=== PATIENT | female | born 1970 | race Caucasian/White ===

== ENCOUNTER → 2016-07-31 | Outpatient (CLI) | payer SELFPAY ==
[~2016-07-31] MED LIST: B-1100 MG PO; BENADRYL25 MG PO; BUSPAR10 MG PO; FOLIC ACID1 MG PO; KEFLEX500 MG PO; KLONOPIN0.5 MG PO; MAG-OX-400(241400 MG PO; MIRALAX17 GM PO; PHENOBARBITAL30 MG PO; POTASSIUM99 M1 PO; PRENATAL 1+1)(P1 TAB PO; PREVACID15 MG PO; PROTONIX40 MG PO; THIAMINE HCL100 MG PO; VALIUM5 MG PO; ZOLOFT100 MG PO; ZOLOFT50 MG PO
== END ==
LOC: EDSTATUS 13:34 → GAMB 18:49
DX: R46.2 Strange and inexplicable behavior (principal); E10.9 Type 1 diabetes mellitus without complications
CPT/HCPCS: A0428

== ENCOUNTER 2016-08-04 17:28 | Inpatient (IN) | payer SELFPAY ==
[~2016-08-04] VITALS: Ht 162.6 cm; Wt 67.7 kg
--- NOTE | ~2016-08-04 | DS ---
PATIENT'S NAME: SID CRUZ [facility] AGE: 46 Y [address] ROOM: [address] [place], [place] [address] LOCATION: GPCU ADMIT DATE: 08/04/2016 Discharge Summary DISCHARGE DATE: 08/07/2016 FAMILY PHYSICIAN: PHYSICIAN, NO ATTENDING PHYSICIAN: Chevy HOGUE FINAL DIAGNOSES: 1. Alcohol intoxication for detoxification. 2. History of chronic alcoholism. 3. Severe esophagitis. 4. Acute blood loss anemia, resolved. 5. History of depression. 6. BUTCHER ALL ROUND status. CONSULTATIONS: GI, Dr. Arriola. PROCEDURES: EGD by Dr. Arriola. REASON FOR ADMISSION: This is a 46-year-old female with a history of chronic alcoholism and depression. The patient presented with alcohol intoxication requiring detox. The patient was brought to the ER and was placed in BUTCHER ALL ROUND status by D. Please see Dr. Hogue's admission H and P for further details. DIAGNOSTIC STUDIES: ABG was done on admission showed a pH of 7.41, pCO2 43, pO2 62, bicarb 27.3, ammonia level less than 10. CPK 115. Troponin I less than 0.04. Serial CBCs were done and showed essentially normal white count, hemoglobin on admission was 7.7, dropped to 7.1, the next day, the patient received PRBC transfusion, hemoglobin, subsequently was 8.6, and stable at the time of discharge, platelet count was within normal range. Serial CMPs were done. Sodium was 149 on admission and was stable at 138 at the time of discharge. Kidney function tests were within normal range. Liver function tests were normal except for AST of 52 and ALT on admission of 87, total bilirubin level was normal, PT/INR normal, urine drug screen negative. Blood alcohol level 0.5 on admission. CK-MB 5.8. Acetaminophen level less than 2.0. Salicylate level less than 2.8. Beta hCG quantitative less than 1.0 and negative. Chest x-ray was done for concerns of aspiration showed no evidence of acute cardiopulmonary disease. The patient had confusion. CT head was found to be normal. HOSPITAL COURSE: This is a 46-year-old female with a history of chronic alcoholism, recent depression, and life stressors. The patient had been taking alcohol at home and presented with alcohol intoxication requiring detox. She was brought in by her family with altered mental status. CT head was done and was found to be negative. The patient just had alcohol intoxication. Urine drug screen was negative. She was following commands and PATIENT'S NAME: SID CRUZ [facility] AGE: 46 Y [address] ROOM: [address] [address] LOCATION: GPCU ADMIT DATE: 08/04/2016 Discharge Summary DISCHARGE DATE: 08/07/2016 FAMILY PHYSICIAN: PHYSICIAN, KERON ATTENDING PHYSICIAN: Chevy HOGUE was much better the next day. The patient was placed on the detox pathway and she was given a banana bag. She continued to do well and did not have any withdrawal symptoms. The patient was found to have an episode of hematemesis. GI was consulted. The patient underwent an EGD that showed severe esophagitis. She was placed on PPI b.i.d. by Gastroenterology. She needs a repeat EGD in 8 weeks and also colonoscopy to see resolution of ulcers. The patient continued to do well, she was tolerating p.o. and ambulating in the hallway. Prior to her discharge, the patient was in BUTCHER ALL ROUND status based on [facility] recommendations. [facility] was notified of her discharge of the patient and the patient was taken to residential by [facility]. I was asked to sign the paperwork saying the patient is medically stable for discharge by [facility]. The patient will need a followup and this is mentioned on the [facility] discharge instruction. The patient is okay to from a medical standpoint to go to residential, but she needs a followup as recommended in the discharge instructions below. The patient was not suicidal and was not EPC'ed. She denied any suicidal ideation during this admission. She was also not homicidal. DISCHARGE INSTRUCTIONS: She is discharged on regular diet with activity as tolerated. Follow up with GI at [facility] in 1 month time. Follow up PCP 4-5 days time. PCP to check a CBC and a BMP. The patient needs an EGD in 8 weeks with colonoscopy per GI. Alcohol cessation discussed in great detail during this admission. The patient was advised a psychiatrist follow, but she refused to visit with a psychiatrist. She then asked for a counselor. She was given information on alcohol cessation with all the telephone numbers for inpatient rehab. She will follow up with counselor outpatient. DISCHARGE MEDICATIONS: 1. Zoloft 100 mg p.o. q.a.m. 2. Protonix 40 mg p.o. b.i.d. for 3 months and GI to decide on PPI use in the future. 3. Thiamine 100 mg p.o. daily. 4. Folic acid 1 mg p.o. daily. This patient was managed by hospitalist and GI teams during this admission. PATIENT'S NAME: SID CRUZ [facility] AGE: 46 Y [address] ROOM: [place] [address] LOCATION: [facility] ADMIT DATE: 08/04/2016 Discharge Summary DISCHARGE DATE: 08/07/2016 FAMILY PHYSICIAN: , KERON ATTENDING PHYSICIAN: Chevy HOGUE ROMMEL GUO MD [place]/diamond /[id number] d: 08/08/16 0404 t: 08/11/16 1829, DISCHARGE SUMMARY
--- NOTE | ~2016-08-04 | ER ---
PATIENT'S NAME: SID CRUZ [facility] AGE: 46 Y [address] ROOM: [id number] [place], [place] [address] [facility] ADMIT DATE: 08/04/2016 ER/Outpatient Report DISCHARGE DATE: FAMILY PHYSICIAN: PHYSICIAN, NO ATTENDING PHYSICIAN: Chevy LÓPEZ Time of Admission: 1728 hours. Time of Evaluation: 1730 hours. CHIEF COMPLAINT: Possible overdose, alcohol consumption. HISTORY OF PRESENT ILLNESS: Sid is a 46-year-old female who presents per EMS with possible overdose of Benadryl along with alcohol intake. In the field, her blood sugar was 108 and initial vital signs were stable. She was at home, a friend was with her, in which he was going to drive her up to see her brother. The patient had been drinking, she was stumbling all over and not making much sense. He was very concerned about her and he did call the police at this time. The patient is currently in AA, her friend with her reports that he has only known her the last 2 or 3 weeks through this program. The patient's past medical records were reviewed, in which she does have a history of daily alcohol use. She was here last November in which she did have some uterine fibroids along with some colon diverticuli, some fatty liver. She was slightly anemic at this time and was to follow up with an [employer]. Upon presentation, she is pretty pale. There is no seizure activity. She is pretty obtunded, but she does respond to voice. The patient does become pretty emotional, cries upon asking her questions. She is disoriented to where she is at, but she know she is in [place], [place]. She is unaware of what day it is, but is able to tell myself her first and last name. PAST MEDICAL HISTORY: 1. Arthritis. 2. Alcohol abuse, daily. 3. History of anemia secondary to vaginal bleed. PAST SURGICAL HISTORY: The patient denies any past surgeries. I do not see any on record. ALLERGIES: PENICILLIN. MEDICATIONS: The patient denies any medications, they did find Benadryl in which they believe she may be had taken a couple of these. Her last visit here, she was PATIENT'S NAME: DAVID CRUZLA [facility] AGE: 46 Y [address] ROOM: [id number] [place], [place] [address] [facility] ADMIT DATE: 08/04/2016 ER/Outpatient Report DISCHARGE DATE: FAMILY PHYSICIAN: PHYSICIAN, NO ATTENDING PHYSICIAN: Chevy LÓPEZ not on any medications. SOCIAL HISTORY: She does drink alcohol daily, vodka was found in her house. She recently lost her and also had a couple other deaths in the family. FAMILY HISTORY: Not able to be obtained. REVIEW OF SYSTEMS: All systems reviewed by myself and negative with the exception of those noted in the HPI. PHYSICAL EXAMINATION: VITAL SIGNS: Current height 5 feet 4 inches, weight 70.6 kg. Temperature 98.6, pulse 119, respirations 18, blood pressure 116/70, she is 96% on room air. [place] Coma Scale is 15. GENERAL: Sid is alert, but very drowsy. She does awaken to voice, does follow commands. She is disoriented to place and time, but able to tell myself whom she is. SKIN: Overall is within normal limits. I do not see any bruising or abrasions. EYES: Pupils are reactive, but sluggish. Nonicteric. EARS: Ear canals are clear. TMs intact. NOSE: Nares are patent. No congestion is noted. MOUTH AND THROAT: Oropharynx is clear. Buccal mucosa is little dry along with her lips. NECK: Supple, no lymphadenopathy. No thyromegaly appreciated. She does not complain of any pain in her neck, can move her neck without any difficulty. CHEST/LUNGS: Lung sounds are clear throughout. HEART: Regular rhythm, little tachycardic. No murmurs noted. ABDOMEN: Normal. Bowel sounds are active. No distention is noted. No organomegaly. No masses are palpable. No CVA tenderness present. EXTREMITIES: On lower extremities, no peripheral edema is noted. She does have strength 5/5 to all extremities and moves them spontaneously. NEUROLOGIC: The patient has good equal hand grasp, good strength throughout. She does follow commands, but is just a little bit lethargic. LABORATORY DATA AND X-RAYS: Please note alcohol drug abuse overdose panel was obtained. WBC 4.2, hemoglobin is low at 7.7, MCV is 74.1, platelets are 326. Acetaminophen level, salicylate level and HCG are all negative. Alcohol is 0.500. Sodium 149, potassium 3.6, BUN 5, creatinine 0.4. Liver enzymes are mildly elevated at 52 and 87 respectively of AST and ALT. Troponin is less than 0.40. CK-MB 5.8. Ammonia level is negative. PATIENT'S NAME: SID CRUZ [facility] AGE: 46 Y [address] ROOM: [place] [address] [facility] ADMIT DATE: 08/04/2016 ER/Outpatient Report DISCHARGE DATE: FAMILY PHYSICIAN: PHYSICIAN, NO ATTENDING PHYSICIAN: Chevy LÓPEZ Please note, an EKG was performed and this was reviewed by Dr. River. Sinus tachycardia, rate is 109, normal axis. There is no ST elevation or depression. No T-wave inversion per Dr. River. CT of the head without contrast was performed which this is negative per verbal report. Official over-read is pending. ASSESSMENT: 1. Anemia, unknown etiology. 2. Alcohol intoxication, history of chronic alcohol abuse. PLAN: The patient was started on 1 L of normal saline bolus along with a banana bag. I did review all test results, lab findings with Dr. River. Dr. River did visit with the hospitalist, Mykel about admission and he did see her down in the emergency room. We were not able to get a urine from the patient as she was not able to urinate. The patient will be admitted to the hospitalist with report given by Dr. River. The patient did become more awake throughout her stay and her friend was here at her side. He did provide some history to myself and also the chief compliance officer. The patient is EPC'd due to her concern for possible endangerment to self. The patient's blood pressure initially was a little hypotensive but did correct with the fluid bolus. No other acute changes noted. Please see admission dictation for further details. SOL HONEYCUTT APRN FOR DUSTIN RIVER, DO ALONZO/modl /[id number] d: 08/05/16 0354 t: 08/15/16 1319, OUTPATIENT REPORT
--- NOTE | ~2016-08-04 | HP ---
PATIENT'S NAME: SID CRUZ [facility] AGE: 46 Y [address] ROOM: [place] [address] [facility] ADMIT DATE: 08/04/2016 History & Physical DISCHARGE DATE: FAMILY PHYSICIAN: PHYSICIAN, NO ATTENDING PHYSICIAN: Chevy LÓPEZ DATE OF SERVICE: CHIEF COMPLAINT: Alcohol intoxication. HISTORY OF PRESENT ILLNESS: The patient is a 46-year-old female with past medical history of anemia, alcohol abuse, and depression, who presents here with acute alcohol intoxication. The patient was brought in by police after her boyfriend called ambulance as the patient was noted to be intoxicated at home. Upon arrival, the patient was found to be intoxicated with elevated ethanol level of 0.5. The patient was noted to be intoxicated in the emergency department with ethanol level of 0.5. The patient was started on banana bag. The patient was placed on Emergency Protective Custody per Police Department. The patient's Benadryl medication was noted to be empty. The patient denies of taking medication to harm herself or overdose with Benadryl. The patient reports that she has been using Benadryl for her allergy and has been using 2 or 3 in the past few days. The patient reports that she is depressed, denies any suicidal ideation. According to her significant other, the patient has had some loss in the family in the past year which including her mother, son, and . The patient was also on 12-step alcohol cessation help; however, lately due to her severe depression, she has been drinking for the past few days. Of note, the patient has a history of anemia and reports that had had multiple blood transfusions in the past. She denies any EGD or colonoscopy workup done in the past. She has had a vaginal bleed in the past, but she denies that she has any vaginal bleeding in the present. The patient currently denies shortness of breath, nausea, vomiting, abdominal pain, fever, chills, weight loss, visual change, or visual hallucination. MEDICAL HISTORY: Depression and alcohol abuse. SURGICAL HISTORY: No surgical history. FAMILY HISTORY: [facility] 46 [facility] [address] ROOM: [place] [address] LOCATION: GPCU ADMIT DATE: 08/04/2016 History & Physical DISCHARGE DATE: FAMILY PHYSICIAN: PHYSICIAN, NO ATTENDING PHYSICIAN: Chevy LÓPEZ Strong family history of alcohol abuse and depression. SOCIAL HISTORY: The patient lives by herself. MEDICATION: Benadryl. REVIEW OF SYSTEMS: All systems reviewed, all negative except stated in the H and P. PHYSICAL EXAMINATION: VITAL SIGNS: The patient noted to be tachycardic, afebrile. GENERAL APPEARANCE: The patient is alert and awake, in no acute distress. HEAD: Atraumatic, normocephalic. EYES: Sclerae nonicterus. Extraocular muscle intact. NOSE: No nasal discharge. EARS: No ear discharge. ORAL: Dry oral mucosa. NECK: No JVD. CHEST: Clear to auscultation bilaterally. HEART: Tachycardic. No murmurs, rubs, or gallops. ABDOMEN: Mild epigastric tenderness on palpation. No guarding. Bowel sounds present. No rebound. SKIN: Warm to touch. EXTREMITIES: No edema. MUSCULOSKELETAL: Range of motion intact. No obvious effusion and swelling seen. 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 Motor and sensory grossly intact. LABORATORY DATA: Hemoglobin 7.7, hematocrit of 27.4, platelet of 324, and white blood cell count of 4.2. Ammonia less than 10. Sodium of 149, potassium 3.6, chloride of 112, CO2 of 24, BUN of 5, and creatinine of 0.4. Ethanol level 0.5. Tylenol and salicylate level undetectable. EKG shows normal sinus rhythm with QTc of 445 and QRS of 86. ASSESSMENT AND PLAN: The patient is a 46-year-old female with past medical history of depression, anemia, and alcohol abuse, who presents here with acute alcohol intoxication with ethanol level of 0.5 and anemia with a hemoglobin of 7.7. 1. Acute alcohol intoxication. The patient with strong history of alcohol intoxication, who presents with an acute alcohol intoxication. The patient was recently on 12 steps for alcohol cessation; however, now presenting with alcohol intoxication. The patient currently on EPC. PATIENT'S NAME: SID CRUZ [facility] AGE: 46 Y [address] ROOM: [address] [place] [address] LOCATION: GPCU ADMIT DATE: 08/04/2016 History & Physical DISCHARGE DATE: FAMILY PHYSICIAN: PHYSICIAN, NO ATTENDING PHYSICIAN: Chevy LÓPEZ Suspicious for depression and possible harming oneself. We will start the patient on CIWA protocol with thiamine supplements. We will keep the patient on telemonitor and start low-dose Lopressor which will help for her tachycardic and also with withdrawal like symptoms. 2. Anemia. Etiology most likely secondary to anemia of iron deficiency with MCV of 34.1. The patient reports that she has had blood transfusion in the past for her anemia but has not had any GI workup done. Of note, CT done on 12/12/2015 shows soft tissue attenuation in the GE junction, possible hiatal hernia. Given that and given that the patient has some epigastric tenderness with a history of alcohol abuse, we will start the patient on Protonix 40 mg IV b.i.d. We will try to acquire Hemoccults and consult GI tomorrow morning for possible GI evaluation. We will keep the patient on clear liquid diet. 3. Depression. The patient has history of depression with some social factor including recent history of family . We will consult Psychiatry tomorrow morning. 4. Possible Benadryl toxication. Currently, the patient does not exhibit any anticholinergic overdose symptoms. QTc and QRS within normal limits. We will keep the patient on telemonitor. I have personally reviewed the patient's medical record including but not limited to blood work and radiology report. Total time spent with patient is greater than 50 minutes, more than 50% of the time spent in direct patient care and discussion with her significant other. Case reviewed with the patient and nursing staff. All questions were answered to the patient's satisfaction. We will admit the patient as an inpatient due to alcohol intoxication, depression, and possible GI bleed. MD CHRISTELLE MELARA/diamond /[id number] D: 142 T: 033 HISTORY & PHYSICAL
--- NOTE | ~2016-08-04 | CON ---
PATIENT'S NAME: SID CRUZ [facility] AGE: 46 Y [address] ROOM: [address] [place], [place] [address] LOCATION: GPCU ADMIT DATE: 08/04/2016 Consultation DISCHARGE DATE: FAMILY PHYSICIAN: PHYSICIAN, NO ATTENDING PHYSICIAN: Chevy HOGUE DATE OF CONSULTATION: 08/05/2016 REFERRING PHYSICIAN: BIGG GONZALEZ MD REFERRING PROVIDER: Dr. Hogue. REASON FOR CONSULTATION: Reported hematemesis. HISTORY OF PRESENT ILLNESS: This is a 46-year-old female with a past medical history of anemia, alcohol abuse, and depression. The patient presented to the emergency room with acute alcohol intoxication after being brought in by police. Her boyfriend called the ambulance as she was noted to be severely intoxicated at home with ethanol level found in the emergency room at 0.5. The patient was placed into Emergency Protective Custody per the police department. The patient's Benadryl medication was also noted to be empty as she does deny taking any of Benadryl to harm herself or overdose, though this is unsure. The patient reports that she is depressed, but denies any suicidal ideations. We were asked to see in consultation for anemia as her hemoglobin on admission was 7.7. The patient was seen and examined. She does report having blood transfusion approximately 11 months ago secondary to anemia. At that time, it was thought it was contributed to her heavy vaginal bleeding, per her recollection. During our interview, the patient does not make eye contact. She has a very flat affect and is not open to answering questions descriptively. She denies any melenic stool. No hematemesis. She denies any GI symptoms. She does report having upper endoscopy completed approximately 6 months ago in [place], [place], that she states was "normal." At that time, she also stated she had a colonoscopy that was also normal, though we will request these reports. Again, during our interview, the patient denied any symptoms. Upon closure of our interview, the significant other, who was at bedside during our interview, followed us outside the room and reported that when he went to her home, there was noted to be a large amount of bright red blood around her emesis. He is unsure if she had previously vomited any blood as the patient continues to deny this. The patient acutely denies any chest pain, chest pressure, shortness of breath, fever, chills, night sweats, or weight loss. She does admit to drinking alcohol for the past 11 months at 750 PATIENT'S NAME: SID CRUZ [facility] AGE: 46 Y [address] ROOM: [place] [address] LOCATION: [facility] ADMIT DATE: 08/04/2016 Consultation DISCHARGE DATE: FAMILY PHYSICIAN: PHYSICIAN, NO ATTENDING PHYSICIAN: Chevy HOGUE mL minimum per day. PAST MEDICAL HISTORY: Chronic alcoholism and depression. PAST SURGICAL HISTORY: Upper endoscopy and possible colonoscopy completed approximately 6 months ago, and we will request for these records to be sent to us. SOCIAL HISTORY: The patient lives by her herself. Her approximately 11 months ago. She does have a new significant other who is at the bedside. She admits to drinking 750 mL of hard alcohol per day, her friend states there might be more. She denies any tobacco or illicit drug use. FAMILY HISTORY: There is a strong family history of alcohol abuse and depression. She denies any gastrointestinal diseases. ALLERGIES: PENICILLIN. CURRENT MEDICATIONS: Please refer to the medication administration record. REVIEW OF SYSTEMS: A 10-point review of systems was completed. All were negative except for those identified in the History of Present Illness. PHYSICAL EXAMINATION: GENERAL: A very pleasant, 46-year-old female, who is lying in bed, who appears to be in no acute distress. VITAL SIGNS: Temperature 98.9, pulse of 85, respirations of 20, blood pressure 137/70, and oxygen saturation is 96% on room air. SKIN: [employer], warm, and dry. No jaundice. HEENT: Head is normocephalic and atraumatic. Pupils are equal, round, and reactive to light. Sclerae are clear, nonicteric. Oral mucosa is pink and moist. No thyromegaly. NECK: Soft and supple. CARDIOVASCULAR: Regular. Normal S1 and S2. RESPIRATORY: Respirations even and unlabored. Lungs clear to auscultation. ABDOMEN: Soft, round, nontender, and nondistended. Bowel sounds positive x4 quadrants. MUSCULOSKELETAL: No muscle weakness or atrophy. EXTREMITIES: No clubbing, cyanosis, or edema. PATIENT'S NAME: SID CRUZ [facility] AGE: 46 Y [address] ROOM: [address] [place], [place] [address] LOCATION: GPCU ADMIT DATE: 08/04/2016 Consultation DISCHARGE DATE: FAMILY PHYSICIAN: PHYSICIAN, NO ATTENDING PHYSICIAN: Chevy HOGUE NEUROLOGICAL: Grossly nonfocal. The patient does appear to be significantly flat during our interview. She does not make eye contact, with minimal one- word answers. She does also nod when asked questions with minimal verbal response. LABORATORY AND DIAGNOSTIC DATA: Ammonia level was less than 10. White blood cell count of 4.1; hemoglobin of 7.1, down from admission at 7.7; hematocrit of 25.6; MCV of 74.6; and platelets of 320. Chemistry panel includes a glucose of 77, BUN of 5, creatinine 0.4, sodium 147, potassium 3.7, chloride of 112, and CO2 of 25. Albumin of 3.0. AST 52, ALT of 72, and alkaline phosphatase of 76. Total bilirubin 0.3. Prothrombin time 9.9 and INR 0.94. Drug screen was negative. Alcohol on admission was 0.5. She did also have a head CT on admission secondary to confusion that was a normal study. ASSESSMENT AND PLAN: Again, this is a pleasant, 46-year-old female who was recently admitted with acute alcohol intoxication. We were asked to see in consultation for the patient's anemia as her hemoglobin was found to be 7.7. In a long discussion with the patient as well as the patient's significant other at the bedside, it is stated that the patient's home was found to have a large bloody emesis, though the patient continues to deny this. We discussed in depth with the patient as well as the significant other for possible upper endoscopy. The patient was slightly reluctant to go forth, though appears to be now in agreement to go forth with an upper endoscopy. We will also request for records to be sent to us from her previous upper endoscopy and colonoscopy. She may need repeat screening colonoscopy if not done in the last 5 years with continued anemia. The risks, benefits, and alternatives were discussed with the patient as well as the patient's significant other per Dr. Bigg Gonzalez. Further recommendations to be given status post upper endoscopy. Thank you for this consult and allowing us to participate in the care of this patient. We will continue to monitor, evaluate, and treat as appropriate. REJI WHITE APRN FOR MD JOSÉ ASH/diamond /[id number] d: 08/06/16 1209 t: 08/18/16 1150, CONSULTATION REPORT
[2016-08-04 17:48] LABS: BASOPHIL % 0.5 %; HEMATOCRIT 27.4 % (33.0-46.0); IMMATURE GRANULOCYTE # 0.1 K/uL (0.0-0.3); IMMATURE GRANULOCYTE % 1.2 %; LYMPHOCYTE % 23.4 %; MCH 20.8 pg (27.0-34.0); MCHC 28.1 gm/dL (32.0-36.5); MCV 74.1 fl (83.0-98.0); MONOCYTE # 0.5 K/uL (0.0-1.0); MONOCYTE % 11.5 %; MPV 8.7 fl (9.4-12.4); NEUTROPHIL # (ANC) 2.6 K/uL (1.8-7.8); NEUTROPHIL % 62.4 %; NRBC % 0 /100WBC (0-0.00); PLATELET COUNT 326 K/uL (150-450); RDW-CV 21.2 % (11.9-14.6); WBC 4.2 K/uL (4.0-11.0)
[2016-08-04 17:50] LABS: HEMOGLOBIN 7.7 g/dL (10.0-15.0)
[2016-08-04 18:10] LABS: ALBUMIN 3.1 gm/dL (3.5-5.0); ALK PHOS 78 IU/L (33-138); ALT 87 IU/L (12-78); AST 52 IU/L (10-40); BLOOD UREA NITROGEN 5 mg/dL (6-24); CALCIUM 7.8 mg/dL (8.5-10.5); CHLORIDE 112 mMol/L (96-110); CO2 24 mMol/L (22-32); CREATININE 0.4 mg/dL (0.5-1.1); ESTIMATED GFR (MDRD EQUATION) > 60; POTASSIUM 3.6 mMol/L (3.7-5.1); TOTAL BILIRUBIN 0.2 mg/dL (0.0-1.5); TOTAL PROTEIN 6.3 g/dL (6.0-8.4)
[2016-08-04 18:12] LABS: ANION GAP 16.6 (10.0-19.0); SODIUM 149 mMol/L (135-145)
[2016-08-04 18:50] LABS: BICARBONATE 27.3 mmol/L (18.0-23.0); PCO2 43 mmHg (35-45); PO2 62 mmHg (80-90)
[2016-08-04 19:02] LABS: CPK 115 IU/L (21-215)
[2016-08-04 19:48] LABS: AMPHETAMINE NEGATIVE (NEGATIVE); BARBITURATE NEGATIVE (NEGATIVE); COCAINE NEGATIVE (NEGATIVE); OPIATES NEGATIVE (NEGATIVE)
[2016-08-04] MEDS ORDERED: BENADRYL25 MG PO (20:05)
--- NOTE | 2016-08-05 04:13 | NUR ---
Admission Note: Patient brought in by Police. 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 Patient brought to PCU at 2009 from ER. Orientated to unit, nurse, and room 6322. Blood alcohol level was 500. Patient is cooperative and talking. Placed on Psych 15-minute checks. Denies suicidal thoughts. Patient does admit to being depressed. Alcohol Withdrawal Assessment Scoring q 4 hours for 72 hours. Clear liquid diet. One banana bag and fluids given in ER. Psych, GI, care management consult tomorrow AM.
--- NOTE | 2016-08-05 04:26 | NUR ---
Significant Event: VSS on RA. HR's 90-100's. Patient appears anxious at times. IV to R) hand. Patient slept well. No complaints. CIWA protocol last night. Follow up: Psych, GI, care management consult today.
[2016-08-05 05:46] LABS: BASOPHIL % 0.7 %; EOSINOPHIL % 0.7 %; HEMATOCRIT 25.6 % (33.0-46.0); IMMATURE GRANULOCYTE # 0.1 K/uL (0.0-0.3); IMMATURE GRANULOCYTE % 1.2 %; LYMPHOCYTE # 0.8 K/uL (0.8-4.0); MCH 20.7 pg (27.0-34.0); MCHC 27.7 gm/dL (32.0-36.5); MCV 74.6 fl (83.0-98.0); MONOCYTE # 0.4 K/uL (0.0-1.0); MONOCYTE % 8.9 %; MPV 8.3 fl (9.4-12.4); NEUTROPHIL # (ANC) 2.8 K/uL (1.8-7.8); NEUTROPHIL % 68.5 %; NRBC % 0 /100WBC (0-0.00); PLATELET COUNT 320 K/uL (150-450); RBC 3.43 M/uL (3.50-5.50); RDW-CV 20.9 % (11.9-14.6); WBC 4.1 K/uL (4.0-11.0)
[2016-08-05 05:51] LABS: INR - (THERAPEUTIC) 0.94 (0.92-1.07); PROTIME 9.9 SECONDS (9.8-11.4)
[2016-08-05 05:54] LABS: HEMOGLOBIN 7.1 g/dL (10.0-15.0)
[2016-08-05 06:05] LABS: ALK PHOS 76 IU/L (33-138); ALT 72 IU/L (12-78); AST 52 IU/L (10-40); BLOOD UREA NITROGEN 5 mg/dL (6-24); CHLORIDE 112 mMol/L (96-110); CO2 25 mMol/L (22-32); CREATININE 0.4 mg/dL (0.5-1.1); ESTIMATED GFR (MDRD EQUATION) > 60; POTASSIUM 3.7 mMol/L (3.7-5.1); TOTAL PROTEIN 5.8 g/dL (6.0-8.4)
[2016-08-05 06:06] LABS: ANION GAP 13.7 (10.0-19.0); CALCIUM 7.4 mg/dL (8.5-10.5); SODIUM 147 mMol/L (135-145); TOTAL BILIRUBIN 0.3 mg/dL (0.0-1.5)
--- NOTE | 2016-08-05 11:41 | NUR ---
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 [employer] will need to notified when she is ready to dismiss. [phone] is the number to call when she is medically stable. Tried to call Nya at [facility] to see if she would meet direct admission criteria to come to them when ready to dismiss, but she is currently in an assessment per the front office coordinator, so I will try to call her back later today. CM to continue to follow and assist.
--- NOTE | 2016-08-05 16:17 | NUR ---
Significant Event: pt is having regular food today, candis.ok. EGD in am, permit signed. Psych came but pt refused. Pt has friend Zane here with her today and another friend. Pt pleasant and cooperative. Standby to bathroom. Pt drank alot of water this am. No bm. Follow up:NPO at 0000
--- NOTE | 2016-08-05 22:43 | NUR ---
KATIE here is see patient. Spoke about her last 24hrs in Hosptial. She has been cooperative with cares and agrees to have an EGD in am. KATIE released her from [facility]. We do need to contact KATIE if she leaves or when she is dismissed. She does have warrants out for her arrest.
[2016-08-06 04:15] LABS: BASOPHIL % 0.7 %; EOSINOPHIL # 0.1 K/uL (0.0-0.5); EOSINOPHIL % 1.1 %; HEMATOCRIT 29.6 % (33.0-46.0); HEMOGLOBIN 8.6 g/dL (10.0-15.0); IMMATURE GRANULOCYTE % 0.9 %; LYMPHOCYTE # 0.9 K/uL (0.8-4.0); LYMPHOCYTE % 19.6 %; MCH 21.4 pg (27.0-34.0); MCHC 29.1 gm/dL (32.0-36.5); MCV 73.6 fl (83.0-98.0); MONOCYTE # 0.5 K/uL (0.0-1.0); MONOCYTE % 10.9 %; MPV 8.7 fl (9.4-12.4); NEUTROPHIL % 66.8 %; NRBC % 0 /100WBC (0-0.00); PLATELET COUNT 306 K/uL (150-450); RBC 4.02 M/uL (3.50-5.50); RDW-CV 19.9 % (11.9-14.6); WBC 4.5 K/uL (4.0-11.0)
[2016-08-06 04:29] LABS: ANION GAP 12.8 (10.0-19.0); BLOOD UREA NITROGEN 6 mg/dL (6-24); CALCIUM 7.8 mg/dL (8.5-10.5); CHLORIDE 106 mMol/L (96-110); CO2 23 mMol/L (22-32); CREATININE 0.4 mg/dL (0.5-1.1); ESTIMATED GFR (MDRD EQUATION) > 60; POTASSIUM 3.8 mMol/L (3.7-5.1)
[2016-08-06 04:32] LABS: SODIUM 138 mMol/L (135-145)
--- NOTE | 2016-08-06 04:34 | NUR ---
Significant Event: A/O x3. Up with SBA. VSS on RA. NPO since midnight for EGD this AM. One small BM this shift. 1 unit of blood yesterday for hgb of 7.1. Hgb was 8.6 this morning. Patient cooperative with cares. CIWA protocol. 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 IV to R) hand SL. HR's 80s-100's. Follow up: EGD this morning.
--- NOTE | 2016-08-06 12:40 | NUR ---
Introduced self and CM role to Rebecca. She did have a male visitor in the room when I stopped by, but per her RN for the day Leslee, Rebecca doesn't want any visitors in the room when people come to visit with her. I did ask the gentleman to step out of the room while I talked with her, he did comply and step out of the room. Rebecca tells me that she is planning on going to stay with her brother in a small town between [place] and [place] upon dismissal from [facility]. I did let her know that [employer] was involved when she came in so we will notify them when she is ready to dismiss and from what I understand there is a warrent out for her arrest, so she might be going with them when medically cleared to leave [facility]. She voiced understanding to this. Rebecca also tells me that prior to this, she was 9 years sober and had been going to AA meetings. "I just had a bunch of people and it was hard and this is how I picked to deal with it. I have depression and I take medications for it, I know it wasn't right but it was just to much for me." I had looked at her chart before I stopped in her room and psych did try to come and see her but she turned them away. I inquired about this and she tells me,"I know what my issues are and I have medication already so I didn't want to talk with them." I asked if she followed up with any counselors, to which she tells me no. Asked if she was interested in having the names of some in the local area to which she tells me no again. She shares with me that she has no problem with obtaining her medications. I did provide/go over the financial assistance application with her and told her to fill it out and return it once she was dismissed. She voiced understanding to this. Denied any other questions, needs or concerns. Rebecca tells me that if the police don't take her into custody upon dismissal, she does have a ride of some sort to come and pick her up. CM to continue to follow and assist.
--- NOTE | 2016-08-06 18:45 | NUR ---
PATIENT HAD EGD TODAY. AWAITING CHRIS WALLACE THERAPIST TO ROUND. ORDER TO CALL SECURITY WHEN PATIENT IS GETTING DISCHARGED. PATIENT COOPERATIVE WITH CARES. NO C/O PAIN, VSS.
--- NOTE | 2016-08-07 04:14 | NUR ---
Significant Event: Patient a/ox3. VSS on RA. Up ad lorenza in room. Patient is calm and cooperative but has a very flat affect. Complains of a mild headache but does not want anything for it. Follow up: Dismissal today following RY therapist consult?
[2016-08-07] MEDS ORDERED: ZOLOFT100 MG PO (12:02)
[2016-08-07] MEDS ORDERED: PROTONIX40 MG PO (12:02)
[2016-08-07] MEDS ORDERED: THIAMINE HCL100 MG PO (12:03)
[2016-08-07] MEDS ORDERED: FOLIC ACID1 MG PO (12:04)
--- NOTE | 2016-08-07 12:33 | NUR ---
Social visit with Rebecca this morning. I let her know that I had gotten a request to talk with her again about resources. Rebecca tells me she doesn't really need them, but will take them. I did provide her with inpatient treatment options, outpatient treatment, counselors, AA meetings and the [facility] $4 medication list as well prior to her leaving. She tells me that she is familiar with [facility] so she will probably start with that resource and have them help her find something up in the [place], [place] area to go to for anything she might need since she is planning on moving up there to live with her brother upon dismissal. I let her know that we still had paperwork on the chart to notify [facility] when she was cleared to dismiss so there was a potential that she would have to go to long-term upon dismissal from our facility. She is fine with this and states she will do whatever she has to do. She denies any other questions, needs or concerns at this time. CM to continue to follow and assist. Prior to leaving the floor I did see [facility] officers up by the héctor station, and the plan is to take her to long-term as soon as orders are complete by Dr. López.
--- NOTE | 2016-08-07 14:52 | NUR ---
PATIENT DISMISSED AND TRANSFERED PER W/C BY NURSE, AND ESCORTED OUT BY [employer]. REVIEWED DISMISSAL INSTRUCTIONS, INCLUDING POST-EGD INSTRUCTIONS, PATIENT VERBALIZED UNDERSTANDING. GAVE PATIENT NEW MEDICATION INFORMATION SHEETS. PATIENT HAD NO FURTHER QUESTIONS REGARDING DISCHARGE.
== END 2016-08-07 12:35 | disposition other institution (70) | DRG 897 ==
LOC: GMED 17:28 → GPCU 19:42
PROVIDERS: Emergency Medicine; Family Medicine; ADMIT Internal Medicine
PROC: 30233N1 Transfusion of Nonautologous Red Blood Cells into Peripheral Vein, Percutaneous Approach (ICD-10-PCS; principal; 2016-08-05)
PROC: 0DJ08ZZ Inspection of Upper Intestinal Tract, Via Natural or Artificial Opening Endoscopic (ICD-10-PCS; 2016-08-06)
DX: F10.220 Alcohol dependence with intoxication, uncomplicated (principal); D62 Acute posthemorrhagic anemia; K92.2 Gastrointestinal hemorrhage, unspecified; K22.10 Ulcer of esophagus without bleeding; F32.9 Major depressive disorder, single episode, unspecified
CPT/HCPCS: C9113; G0480; J7030; J7050; P9016

== ENCOUNTER 2016-09-10 15:16 | Inpatient (IN) | payer SELFPAY ==
[~2016-09-10] VITALS: Ht 162.6 cm; Wt 65.2 kg
--- NOTE | ~2016-09-10 | DS ---
PATIENT'S NAME: DAVID RAMIREZLA Jay [facility] AGE: 46 Y [address] ROOM: [address] [address] LOCATION: [facility] ADMIT DATE: 09/10/2016 Discharge Summary DISCHARGE DATE: 09/16/2016 FAMILY PHYSICIAN: PHYSICIAN, NO ATTENDING PHYSICIAN: Mykel Reece ATTENDING PHYSICIAN: On the day of discharge, Dr. Gatica. PRIMARY CARE PROVIDER: Naresh Alonso PA-C. CONSULTING PHYSICIANS: 1. Dr. Leon, Psychiatry. 2. Dr. Younger, Nephrology. FINAL DIAGNOSES: 1. Seizure. 2. Severe hypokalemia. 3. Severe hyponatremia. 4. Refeeding syndrome. 5. Alcohol abuse/dependence. 6. Esophagitis. 7. Depression and anxiety. DISCHARGE MEDICATIONS: 1. vitamin 1 tablet p.o. daily. 2. Prevacid capsule 50 mg p.o. daily. 3. Cephalexin 500 mg p.o. t.i.d. through 09/21/2016. 4. Thiamine 100 mg p.o. twice daily. 5. MiraLAX 17 g p.o. daily p.r.n. constipation. 6. Zoloft 50 mg p.o. daily times week and then increase to 100 mg p.o. daily. 7. BuSpar 10 mg p.o. b.i.d. Discontinued medication was clonazepam 0.5 mg. REASON FOR ADMISSION: Please refer to Dr. Hogue's admitting H and P. This is a 46-year-old female, who was admitted for seizure. She had a fall and seizure at a gas station and was brought to the ER following this. Please refer to also the ER note outlining her presentation. The patient was admitted for further management. LABORATORY AND DIAGNOSTIC DATA: Please refer to the admitting H and P for the laboratory data found in the ER. Of noted, sodium was 120, potassium 1.8. The CT of the head was obtained and it was negative. EKG showed sinus tach. No QRC elongation and no U waves were seen. The patient was monitored closely and sodium levels slowly increased with cautious monitoring over the next [facility]GE: 46 Y [address] ROOM: [address] [place], [place] [address] LOCATION: TU ADMIT DATE: 09/10/2016 Discharge Summary DISCHARGE DATE: 09/16/2016 FAMILY PHYSICIAN: PHYSICIAN, NO ATTENDING PHYSICIAN: Mykel Reece handful of days to the point of day of discharge where it was found to be 137. Potassium was also monitored and replaced and trended upward from 1.8 to normal level of 4.1 by September 11, 2016. This was continued to be monitored and on the day of discharge was 4.2. HOSPITAL COURSE: The patient was admitted to the ICU unit and was given Valium 5 mg twice daily along with Ativan for seizure control. She was on the alcohol and drug detox pathway. Iron studies were obtained. Iron was low at 24, TIBC was 341, and percent saturation was 7%. It should note that hemoglobin upon admission was 10.3, at its bobbi was 8.4, likely a dilutional on the day of discharge was 9.4. The patient was placed on fluid restriction and given D5W and DDAVP with the help of Nephrology's management. This was escalated appropriately and monitored. The patient ultimately was taken off her end-tidal CO2 monitor and was able to be up in the hallways with assistance. On 09/12/2016, she was placed on Lovenox for DVT prophylaxis. The patient had no further seizure activity throughout her hospitalization, and we suspect this is secondary to her electrolyte imbalance initially. On 09/14/2016, the patient did have some erythema about an antecubital IV site, which infiltrated. She was started on Keflex for 7 total days for this. Care Management was working with the patient as far as discharge recommendations. Ultimately, we did have Dr. Leon from Psychiatry visit with the patient on 09/15/2016, gave recommendations as far as management of her depression and anxiety. Zoloft and BuSpar were recommended and clonazepam was discontinued. Ultimately, on 09/16/2016, the patient was stable, feeling well. I had made arrangements for family to allow her to stay with them upon discharge, and ultimately, the patient was discharged on this date. It was recommended that she follow up with her primary care physician in 3 to 5 days, and arrangements were made for her to see Dr. Leon on 10/27/2016 at 2:45 p.m. for followup on her psychiatric medications and counseling. The patient voiced understanding of these arrangements. We reviewed medications recommended for her including Zoloft and BuSpar and reviewed that we were stopping the clonazepam again. The patient voiced understanding. Voiced her concern about her continuing to get counseling and psychiatric help in terms of her anxiety, depression, and alcohol abuse. The patient states she has earnest intentions of continuing with [facility] outpatient and seemed earnest in following up with our psychiatric colleagues concerning her medications and counseling. The patient is discharged home on 09/16/2016 with a diet as tolerated along with activity level. Discharge of this patient took greater than 35 minutes and included coordinating of care with our psychiatric colleagues and contacting her PCP and reviewing medications and followup recommendations with the patient. PATIENT'S NAME: SID RAMIREZ [facility] AGE: 46 Y [address] ROOM: [place] [address] LOCATION: [facility] ADMIT DATE: 09/10/2016 Discharge Summary DISCHARGE DATE: 09/16/2016 FAMILY PHYSICIAN: PHYSICIAN, KERON ATTENDING PHYSICIAN: Mykel Reece KARMA ORELLANA PA-C FOR MD CHARLEE RICO/diamond /[id number] d: 09/17/16 0201 t: 09/22/16 1032, DISCHARGE SUMMARY
--- NOTE | ~2016-09-10 | ER ---
PATIENT'S NAME: SID RAMIREZ [facility] AGE: 46 Y [address] ROOM: [address] [address] LOCATION: [facility] ADMIT DATE: 09/10/2016 ER/Outpatient Report DISCHARGE DATE: FAMILY PHYSICIAN: PHYSICIAN, UNKNOWN ATTENDING PHYSICIAN: Chevy HOGUE Time of arrival: 1516 hours. Time of evaluation: 1516 hours. CHIEF COMPLAINT: Head injury and seizure. HISTORY OF PRESENT ILLNESS: The patient is a 46-year-old female, presents to the emergency department today with a chief complaint of head injury and seizure. Per EMS report, the patient was at a gas station when she was found by the gas station staff to have fallen and hit her head. She did have seizure-like activity that was reported. The patient has been agitated en route. She does report that she has been drinking alcohol and she has lost her . She does have multiple different stories. She does report that her is looking for a job and that was why she was in a town different from her hometown. She then later does report that she lost her . She denies any chest pain. No shortness of breath. She does have a mild headache at the right side of her head. She does report that she has had 4 beers since about 10 a.m. Denies any vision changes. Denies any history of seizure. Pain is currently 0/10 in severity. PAST MEDICAL HISTORY: Anemia, vaginal bleeding, depression, alcohol abuse, arthritis. PAST SURGICAL HISTORY: None reported. SOCIAL HISTORY: The patient denies smoking. She reports daily alcohol use. Denies any illicit drug use. ALLERGIES: TO PENICILLIN. MEDICATIONS: Please see list. PRIMARY CARE DOCTOR: None. PATIENT'S NAME: SID RAMIREZ [facility] AGE: 46 Y [address] ROOM: [address] [address] LOCATION: [facility] ADMIT DATE: 09/10/2016 ER/Outpatient Report DISCHARGE DATE: FAMILY PHYSICIAN: PHYSICIAN, UNKNOWN ATTENDING PHYSICIAN: Chevy HOGUE REVIEW OF SYSTEMS: All systems are reviewed by myself and are negative with the exception of those discussed in the HPI and past medical history. PHYSICAL EXAMINATION: VITAL SIGNS: Weight 64.5 kg, blood pressure 124/77, pulse 105, respiratory rate 20, temperature 97.2, oxygen saturation is 98% on room air. GENERAL: The patient is a 46-year-old female who is awake, but confused. She is oriented to person, not place, not time, not to situation. HEENT: Head, normocephalic. Does have evidence of trauma to the posterior aspect of her head with a hematoma noted. There is also a 3.0 cm laceration. Pupils are equal, round, and reactive to light and accommodation. Extraocular motions are intact. Nares are patent bilaterally. TMs, no evidence of hemotympanum, no Porter sign. No raccoon eyes. The patient does have some swelling around her gums as well as some injury to the lateral aspect of her tongue. NECK: Supple. No nuchal rigidity. No step-offs or deformities. CARDIOVASCULAR: Regular rate and rhythm. No murmurs, rubs, or gallops. LUNGS: Clear to auscultation bilaterally. No wheezes, rales, or rhonchi. ABDOMEN: Soft, nontender, nondistended. No rebound, rigidity, or guarding. MUSCULOSKELETAL: The patient moves all 4 extremities. NEUROLOGICAL: GCS 15. Alert, confused. Slurred speech. She does have equal field underwriter strength bilaterally. Difficulties with [id number]. Downward going toes. No clonus. SKIN: The patient does have a 3.0 cm laceration to the posterior aspect of the scalp and there is surrounding hematoma. LABORATORY DATA AND X-RAYS: Labs and x-rays are obtained. CBC: WBC 15.8, hemoglobin 10.3, hematocrit of 32.6, platelets are normal. Coags are normal. CT scan of the head and neck are obtained. I discussed the results with the radiologist. The head is negative. The neck does show degenerative changes. An initial CMP does reveal a sodium of 116, potassium less than 2. This is rechecked and does reveal a sodium of 120, potassium less than 2.0, chloride 62, CO2 45, glucose 97. BUN and creatinine are normal. Liver function tests are normal. Alcohol is less than 0.01. HCG is less than 1. Accu-Chek is 134. Coags are unremarkable. IMPRESSION: 1. 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 2. Severe hypokalemia. 3. Seizure due to #1. 4. History of alcohol abuse. PATIENT'S NAME: SID RAMIREZ [facility] AGE: 46 Y [address] ROOM: [id number] [place], [place] [address] LOCATION: [facility] ADMIT DATE: 09/10/2016 ER/Outpatient Report DISCHARGE DATE: FAMILY PHYSICIAN: PHYSICIAN, UNKNOWN ATTENDING PHYSICIAN: Chevy HOGUE 5. Acute on chronic anemia with history vaginal bleeding. 6. History of severe esophagitis. 7. Critical care time 31 minutes. 8. Initial visit. EMERGENCY DEPARTMENT COURSE: The patient was brought back to the examination room. Seen and evaluated by myself. IV is established. Laboratory analysis and imaging are obtained as described above. The patient is given a liter of normal saline. The patient is also given 4 mg of Zofran IV. The patient's laboratory testing revealed, initially showed sodium of 116, potassium less than 2.0. This is rechecked. The patient is re-evaluated. She is given normal saline of approximately 500 mL and she is more responsive. Seems to be answering questions and more attentive, however, she is still somewhat confused. The rest of the laboratory analysis is reviewed. CT imaging is reviewed. I have discussed results with the patient. She actually has significantly improved mentation. She is able to ambulate to the bathroom. I have contacted Dr. Younger with Nephrology. He does report he will see and evaluate the patient in the emergency department. Potassium and sodium are replaced. I have discussed the case with Dr. Hogue who is on- call for the hospitalist service. He does agree to accept the patient for further evaluation, treatment, and management. The patient did require a critical care time of 31 minutes. This is cumulative time which did include discussion with the patient, ordering tests, reviewing tests, close monitoring in a patient with altered mental status, discussion with the radiologist as well as close monitoring in a patient with severe electrolyte abnormalities. DISPOSITION: The patient is admitted under the care of Dr. Hogue in stable condition. DO PATRICK CAMPO/diamond /[id number] d: 09/11/16 1302 t: 09/15/16 0752, OUTPATIENT REPORT
--- NOTE | ~2016-09-10 | CON ---
PATIENT'S NAME: SID RAMIREZ [facility] AGE: 46 Y [address] ROOM: [address] [address] LOCATION: [facility] ADMIT DATE: 09/10/2016 Consultation DISCHARGE DATE: FAMILY PHYSICIAN: PHYSICIAN, UNKNOWN ATTENDING PHYSICIAN: Chevy HOGUE DATE OF CONSULTATION: 09/10/2016 REFERRING PHYSICIAN: ROXIE KELLEY REFERRING PHYSICIAN: Dr. Hogue. REASON FOR CONSULTATION: Hyponatremia and hypokalemia. HISTORY OF PRESENT ILLNESS: This is a 46-year-old female with history of depression, alcoholic gastritis, and history of alcohol abuse with recent admission with acute alcohol intoxication. Presented in the clinic with seizure, found to have a sodium of 116. Nephrology consultation has been called for above-mentioned reason. Apparently the patient had a fall today and seizure at a gas station. The patient was noted to fall backwards and hit her head and noticed to have seizure activity lasting for about 3 minutes. EMS was called and the patient was brought to the hospital. Initial lab workup here at our hospital showed sodium of 120 and potassium of 1.8. She received about a liter of normal saline. Repeat sodium after that was 121. The patient had a prolonged history of hypokalemia and was supposed to take potassium; however, probably was not compliant with medications. She has a long history of alcoholism since her demise about a year ago. She is probably homeless and living with her boyfriend and she sometimes is not making sense, although all the records suggested that she is from [place] but she says that she lives in [place]. She sometimes says that her about 3 months ago when actually he about a year ago. However appears to be alert and communicative. As per the patient, since last weekend she was drinking vodka, bottles after bottle with very poor oral intake. She was apparently in the hotel and was going to sleep. She since Thursday onwards, she had only two chicken sandwiches but she could not remember when. She denied any fever, chills, or rigor. Currently has no symptoms, resting comfortably, mildly tachycardic. Although she had seizure activity in the gas station but she denied any urinary incontinence or bowel incontinence. She does not have any fever, chills, cough, headache, or vision changes. As mentioned above, she had recent admission to our hospital with alcohol intoxication and acute blood-loss anemia, possibly from alcoholic gastritis. Had an EGD which showed severe esophagitis and was discharged on PPI but as mentioned above she is noncompliant with all her medications. REVIEW OF SYSTEMS: GENERAL: No fever. No chills or rigor. HEENT: No sore throat. No sinus congestion. CVS: No chest pain. No exertional shortness of breath. No leg swelling. RESPIRATORY: No shortness of breath. No cough. No wheezing. GENITOURINARY: No pain with urination. No increased frequency. No nocturia. GASTROINTESTINAL: No abdominal pain. No abdominal distention. No nausea or vomiting. NEUROLOGIC: No weakness but history of seizures as mentioned in HPI. SKIN: No rash. No itching. ALLERGIES: No seasonal allergy. No hayfever. ENDOCRINE: No heat intolerance. No cold intolerance. PSYCHIATRIC: No sadness. No crying spells. No history of panic attack.PATIENT'S NAME: SID RAMIREZ [facility] AGE: 46 Y [address] ROOM: [place] [address] LOCATION: [facility] ADMIT DATE: 09/10/2016 Consultation DISCHARGE DATE: FAMILY PHYSICIAN: PHYSICIAN, UNKNOWN ATTENDING PHYSICIAN: Chevy HOGUE PAST MEDICAL HISTORY: 1. Depression. 2. Alcohol abuse. 3. Alcoholic gastritis/esophagitis. 4. Recent admission at [facility] with acute alcohol intoxication. PAST SURGICAL HISTORY: No significant past surgical history. FAMILY HISTORY: Father had history of alcohol abuse, no history of IV drug abuse, occasional smoking. SOCIAL HISTORY: Apparently stays in hotel, was recently taken to detention by [facility], denied smoking, has been out of work for the past 6 months. Currently on social security. MEDICATIONS: Although patient was supposed to be on PPI and some other medication but not compliant with any medications. PHYSICAL EXAMINATION: VITAL SIGNS: Blood pressure 100 to 110 over 50 to 60, respiratory rate 18 to 22, heart rate of 103, saturating 93% to 95% on room air. Currently afebrile. GENERAL: Not in apparent distress. HEAD: Moist mucous membranes. Bilateral PERRLA. Aurelia on the head and the back side with laceration. Dry and intact. No active bleeding. NECK: No JVD, thyromegaly or lymphadenopathy. CVS: S1 and S2 normal, regular rate and rhythm. No murmur, rub, gallop. CHEST: Bilateral air entry equal. No wheeze or rales. ABDOMEN: Soft, nontender, nondistended. Bowel sounds present. EXTREMITIES: No cyanosis, clubbing, jaundice. No dependent edema. MUSCULOSKELETAL: No limitation of range of motion. SKIN: No pallor, cyanosis, icterus. REQUIREMENTS ENGINEER: Alert but occasionally not making sense. No gross focal neurological deficit and moving all 4 extremities. LABORATORY DATA: PH 7.6, pCO2 54, bicarb 53, PO2 60. CBC: WBC 15.8, hemoglobin 8.3, platelet 217. Chemistry: Sodium 121, potassium 1.9, chloride 65, bicarbonate 42, BUN 12, creatinine 0.6, glucose 95, calcium 8.9. Albumin 3.6, phosphorus 1.2, magnesium 2.8. INR 1.04. UA, electrolytes are pending. Alcohol level not detectable. Urine tox screens are negative. Urine osmolality 130. PATIENT'S NAME: SID RAMIREZ [facility] AGE: 46 Y [address] ROOM: [place] [address] LOCATION: [facility] ADMIT DATE: 09/10/2016 Consultation DISCHARGE DATE: FAMILY PHYSICIAN: PHYSICIAN, UNKNOWN ATTENDING PHYSICIAN: Chevy HOGUE ASSESSMENT/PLAN: 1. Hyponatremia, possibly hypotonic and euvolemic; serum osmolality although still pending. With very low urine osmolality with significant hyponatremia, we do suspect low osmolar intake with potomania. The patient is giving history of heavy alcohol intake for the last few days without any oral intake. Serum sodium has improved from 116 to 121 on most recent lab check and currently has no neurological symptoms or focal neurological deficit, although appears to be mildly confused but I do not know the baseline status. At this point, I do not see any reason to give 3% sodium chloride. However, I will closely monitor the serum sodium at least q.4. Generally speaking with potomania, if we restrict oral fluid intake, the serum sodium improves too fast and we may need to use some D5 and/or desmopressin to slow the rate of rise of serum sodium. We will closely monitor and I have instructed the nurse to call me with the results of serum sodium every 4 hourly. We will also check urinalysis and urine electrolytes including sodium, potassium, creatinine, osmolality, serum osmolality, and we will continue to check those labs every 4 hourly along with serum sodium. 2. Hypokalemia. Patient's potassium level was initially undetectable on routine serum chemistry; later found to be 1.8 to 1.9 range. We will give 40 mEq of potassium chloride IV now and we will repeat potassium chloride 40 mEq after 2 hours of IV. We will also start oral supplementation along with 40 mEq of oral potassium every 2 hourly until potassium level comes back more than 3.5. We will also check magnesium level. The patient had a history of hypokalemia in the past. Chronic alcoholic patients are occasionally magnesium deficient and that may lead to chronic hypokalemia in these patients. We do not see any reason to suspect Gettleman syndrome in this case. 3. Alcohol abuse. The patient's alcohol level currently is undetectable; however, had a history of prolonged alcohol abuse. There is a chance of delirium tremens. I will defer that to the primary team but the patient needs close monitoring and possibly ICU evaluation. Thank you for allowing me to participate in this patient's care. I will closely monitor the patient's progress along with you. ROXIE KELLEY MD /modl /[id number] d: 09/11/16 1641 t: 09/13/16 1312, CONSULTATION REPORT
--- NOTE | ~2016-09-10 | HP ---
PATIENT'S NAME: DAVID RAMIREZLA Jay [facility] AGE: 46 Y [address] ROOM: [address] [address] LOCATION: [facility] ADMIT DATE: 09/10/2016 History & Physical DISCHARGE DATE: FAMILY PHYSICIAN: PHYSICIAN, UNKNOWN ATTENDING PHYSICIAN: Chevy LÓPEZ DATE OF SERVICE: CHIEF COMPLAINT: Hyponatremia. HISTORY OF PRESENT ILLNESS: The patient is a 46-year-old female with past medical history of alcohol abuse, and depression, who presents here with seizure. The patient had a fall today and seizure at gas station. The patient was noted to fall backwards and hit her head and was noticed to have seizure activity lasting 3 minutes. EMS was called and the patient was brought in to our hospital. The patient's lab workup shows sodium of 120 and potassium of 1.8. The patient reports that she has a history of hypokalemia and supposed to take potassium; however, is not taking her medication. The patient reports that lately she has been living in a hotel and has been depressed and been drinking vodka with poor oral intake. She reports that she drinks until she goes to sleep. She reports that she has a few drinks today also. She does not remember her seizure activity and claims that she fell backwards and just hit her head. She denies fever, chills, abdominal pain, productive cough, headache, vision change, tongue bite, or urinary incontinence. The patient denies history of having seizure. The patient was admitted to our hospital on August 04, 2016, for alcohol intoxication and acute blood loss anemia. She was brought in by her family member for possible detox on her last admission and also complained hematemesis then and had EGD that showed severe esophagitis, and was discharged home with Protonix. However, she reports that she did not take her Protonix after discharge. Upon discharge, [place] [employer] was notified of her discharge and the patient [place] [facility]. The patient reports that due to her and son loss, she has been depressed and has been drinking for the past few years The patient currently denies suicidal attempt and ingestion of her other medication to harm himself. MEDICAL HISTORY: Severe esophagitis, alcohol abuse, and depression. SURGICAL HISTORY: No surgical history. [facility] AGE: 46 Y [address] ROOM: [address] [place] [id number] LOCATION: [facility] ADMIT DATE: 09/10/2016 History & Physical DISCHARGE DATE: FAMILY PHYSICIAN: PHYSICIAN, UNKNOWN ATTENDING PHYSICIAN: Chevy LÓPEZ FAMILY HISTORY: Father has history of alcohol abuse. SOCIAL HISTORY: The patient stays in hotel, was recently taken [place] [facility]. Denies smoking and has been out of work for the past six months. She is currently on social security for income. MEDICATIONS: Currently, the patient is not taking any medication. REVIEW OF SYSTEMS: All systems have been reviewed and are negative except for what is mentioned in HPI. PHYSICAL EXAMINATION: VITAL SIGNS: Afebrile, heart rate of 103, blood pressure 102/58, and O2 saturation of 93 on room air. GENERAL APPEARANCE: The patient is alert and awake, in no acute distress. HEAD: The patient has a laceration of her back side of her head. Aurelia are present. Aurelia clear, dry and intact. No active bleeding. EYES: Extraocular muscle intact. No discharge. NOSE: No nasal discharge. ORAL MUCOSA: The patient has mild ulceration and bleeding around her gums. CHEST: Clear to auscultation bilaterally. HEART: Regular rate and rhythm. No murmurs, rubs, or gallops. ABDOMEN: Soft, nontender, and nondistended. Bowel sounds present. SKIN: Warm to touch. CASINO FLOOR RUNNER: The patient is alert and oriented x3. Motor and sensory grossly intact. MUSCULOSKELETAL: Range of motion intact. No obvious joint effusion. LABORATORY DATA: ABG; pH of 7.6, pCO2 54, and bicarb of 53, pO2 of 60. White blood cell count of 15.8, hemoglobin 10.3, and hematocrit of 32.6, and MCV of 71.1. Sodium of 120, potassium of 1.8, chloride of 62, CO2 of 45, alkaline phosphatase of 60, AST of 39, ALT of 32. Alcohol level undetectable. INR of 1. Urine sodium of 8, potassium of 11, creatinine of 24, also serum osmolality of 260, serum magnesium 1.9, uric acid of 14.9, urine osmolality of 130. CT head unremarkable. EKG sinus tachycardia with QTc of 425, no QRC elongation, no U-waves seen. PATIENT'S NAME: SID RAMIREZ [facility] AGE: 46 Y [address] ROOM: [address] [address] LOCATION: [facility] ADMIT DATE: 09/10/2016 History & Physical DISCHARGE DATE: FAMILY PHYSICIAN: PHYSICIAN, UNKNOWN ATTENDING PHYSICIAN: Chevy LÓPEZ ASSESSMENT AND PLAN: 1. Hyponatremia. The patient is a 46-year-old, white female, presenting with severe hyponatremia with possible seizure secondary to hyponatremia. The patient currently alert and oriented x3. Urine osmolality shows 130, serum osmolality currently pending. Urine sodium and potassium is low. Etiology most likely secondary to beer potomania secondary to alcohol intake and low salt intake. The patient received 1 L of IV fluid in the emergency department. We will start patient on high-protein diet. We will hold IV fluids. We will check renal function panel q.4 hours. Nephrology is consulted. Dr. Younger have seen the patient to follow patient closely with serial renal function panel. To limit fluid intake, to less than 1 L in 24 hours. 2. Severe hypokalemia, etiology most likely secondary to underlying history of hypoxemia and gastric loss, most like secondary to possible association with nausea and vomiting. We will follow the patient closely, QTc is 425 on the EKG. We will place patch as the patient's magnesium level is 1.9. We are going to give potassium 40 mEq in 2 hours IV and to repeat another 40 mEq IV in 2 hours. To also give 40 mEq of potassium oral every 2 hours until potassium is 3.5. To check renal function panel every 4 hours, and to have closer look up. 3. Metabolic alkalosis, most likely secondary to low chloride level and severe hypokalemia. We will treat hypokalemia and also start the patient on high-protein food. The patient is currently taking potassium chloride p.o. We will follow the patient closely. 4. Seizure, most likely secondary to hyponatremia. We will treat underlying etiology depending on level of sodium and seizure, we will treat with 3% if needed. We will put on seizure precaution and Ativan p.r.n. 5. History of alcohol abuse. The patient currently going to be admitted in ICU. Denies history of withdrawal. We will follow the patient closely. We will start the patient on CIWA protocol. We will avoid using thiamine for now as thiamine has free fluid and will change the balance of sodium. We will start oral thiamine for now. We will consult social service director for alcohol abuse. 6. Severe history of esophagitis. We will continue Protonix 40 mg p.o. b.i.d. 7. Leukocytosis. No signs of infection. We will acquire a procal and get a chest x-ray for possible aspiration pneumonia with seizure. However, we will follow clinically. We will avoid antibiotics use for now. 8. The patient currently does not have a place to stay. We will consult social service director. 9. Protein-calorie malnutrition. We will start the patient on high protein diet. I have personally reviewed the patient's medical record including, but not limited to blood work and radiology report. Total time spent with patient is PATIENT'S NAME: SID RAMIREZ [facility] AGE: 46 Y [address] ROOM: [place] [address] LOCATION: [facility] ADMIT DATE: 09/10/2016 History & Physical DISCHARGE DATE: FAMILY PHYSICIAN: PHYSICIAN, UNKNOWN ATTENDING PHYSICIAN: Chevy LÓPEZ greater than 60 minutes, more than 50% of the time spent in direct patient care and patient consultation. Indication was reviewed with the patient, nursing staff, and Dr. Younger, our Nephrology. We will admit the patient to ICU for further care. Greater than 30 minutes of critical care was spent on patient care, also at the bedside. MD CHRISTELLE MELARA/modl /[id number] D: 225 T: 916 HISTORY & PHYSICAL
--- NOTE | ~2016-09-10 | CON ---
PATIENT'S NAME: DAVID RAMIREZLA Jay [facility] AGE: 46 Y [address] ROOM: [place] [address] LOCATION: T ADMIT DATE: 09/10/2016 Consultation DISCHARGE DATE: 09/16/2016 FAMILY PHYSICIAN: PHYSICIAN, NO ATTENDING PHYSICIAN: Chevy LÓPEZ DATE OF CONSULTATION: 09/15/2016 REFERRING PHYSICIAN: ROXIE KELLEY REASON FOR CONSULT: Depressed mood. HISTORY OF PRESENT ILLNESS: The patient is a 46-year-old female with a history of alcohol use disorder and depressive disorder, who presented to the hospital with alcohol intoxication and seizures. The patient is seen today in her room. She reports that she has been sober for 11 years and relapsed more than a year ago following the of her son. Her drinking escalated with the subsequent passing away of her , brother, and mother, all in a space of 6 months. She endorses tolerance, cravings, withdrawals, and continued to drink despite hospitalization for alcoholic gastritis. This is her second hospitalization for alcohol intoxication in less than 2 months. The patient endorses depressed mood, low self-esteem, and feelings of guilt. She, however, denies feelings of hopelessness or worthlessness, and states that she is not suicidal. She reports normal sleep, energy, and appetite, and has no manic or psychotic symptoms. Her anxiety is increased, and she has been worrying a lot lately about her current situation and her future. She denies panic attacks, phobias, obsessions, or compulsions. PAST PSYCHIATRIC HISTORY: The patient reports a history of alcohol abuse and recurrent depression. She denies prior psychiatric hospitalization and also denies a history of self- harm or prior suicide attempts. She has been on several medications over the years, but is currently on Zoloft and clonazepam. She does not think her current medications help anymore. PAST MEDICAL HISTORY: Esophagitis, alcoholic gastritis and anemia. MEDICATIONS: See medication list. ALLERGIES: PENICILLIN. PATIENT'S NAME: SID RAMIREZ [facility] AGE: 46 Y [address] ROOM: [place] [address] LOCATION: [facility] ADMIT DATE: 09/10/2016 Consultation DISCHARGE DATE: 09/16/2016 FAMILY PHYSICIAN: PHYSICIAN, NO ATTENDING PHYSICIAN: Chevy LÓPEZ PAST FAMILY AND SOCIAL HISTORY: The patient is and has 4 children, 3 alive. She denies a history of childhood abuse or trauma. 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. The patient denies current legal problems and was previously incarcerated on alcohol-related charges. She denies tobacco or illicit drug use. She drinks a fifth of whiskey nearly every day. She is unaware of any history of mental illness in the family. REVIEW OF SYSTEMS: Ten systems reviewed and all others negative except as noted in the history. MENTAL STATUS EXAMINATION: The patient is pleasant and cooperative with the interview. She makes good eye contact. She has a normal psychomotor activity. Her speech is normal in rate and volume. She describes her mood as depressed. Her affect is labile and tearful, but she smiles easily. Her thoughts are logical and goal directed. She denies suicidal, homicidal, or violent ideations. She denies hallucinations and has no delusions. She is alert and oriented to time, person, and place. Her concentration and memory are normal. Her language is intact. Her intelligence is average. Her insight and judgment are fair. DIAGNOSES: 1. Alcohol use disorder, severe. 2. Major depressive disorder, unspecified. 3. Uncomplicated bereavement. PLAN: The patient has not been on Zoloft since admission; recommend restarting this medication, discontinue clonazepam and start the patient on BuSpar 10 mg twice daily. [facility] outpatient psych followup for medication management and substance abuse counseling. Thank you for your consult. MD MADIHA LEE/diamond /[id number] d: 09/16/16 0850 t: 09/16/16 1612, CONSULTATION REPORT
[~2016-09-10 15:16] MED LIST changes: -B-1100 MG PO; -BUSPAR10 MG PO; -KEFLEX500 MG PO; -KLONOPIN0.5 MG PO; -MAG-OX-400(241400 MG PO; -MIRALAX17 GM PO; -PHENOBARBITAL30 MG PO; -POTASSIUM99 M1 PO; -PRENATAL 1+1)(P1 TAB PO; -PREVACID15 MG PO; -VALIUM5 MG PO; -ZOLOFT50 MG PO
[2016-09-10 15:49] LABS: HEMATOCRIT 32.6 % (33.0-46.0); HEMOGLOBIN 10.3 g/dL (10.0-15.0); MCH 22.2 pg (27.0-34.0); MCHC 31.6 gm/dL (32.0-36.5); MCV 70.1 fl (83.0-98.0); PLATELET COUNT 256 K/uL (150-450); RBC 4.65 M/uL (3.50-5.50); RDW-CV 20.3 % (11.9-14.6); WBC 15.8 K/uL (4.0-11.0)
[2016-09-10 16:00] LABS: INR - (THERAPEUTIC) 1.04 (0.92-1.07); PROTIME 10.9 SECONDS (9.8-11.4); PTT 25 SECONDS (25-32)
[2016-09-10 16:21] LABS: ABSOLUTE NEUTROPHIL CT (ANC) 14.7 K/uL (1.8-7.8); BANDED NEUTROPHIL # 1.4 K/uL (0.0-0.1); BANDED NEUTROPHILS % 9 %; LYMPHOCYTE # 0.2 K/uL (0.8-4.0); LYMPHOCYTE % 1 %; MONOCYTE # 0.9 K/uL (0.0-1.0); SEGMENTED NEUTROPHIL # 13.3 K/uL (1.8-7.8); SEGMENTED NEUTROPHIL % 84 %
[2016-09-10 17:57] LABS: CHLORIDE 62 mMol/L (96-110); POTASSIUM < 2.0 mEq/L (3.7-5.1); SODIUM 120 mEq/L (135-145)
[2016-09-10 17:58] LABS: ALBUMIN 4.1 gm/dL (3.5-5.0); ALK PHOS 68 IU/L (33-138); BLOOD UREA NITROGEN 14 mg/dL (6-24); CO2 45 mMol/L (22-32); CREATININE 0.6 mg/dL (0.5-1.1); ESTIMATED GFR (MDRD EQUATION) > 60; TOTAL BILIRUBIN 1.2 mg/dL (0.0-1.5); TOTAL PROTEIN 7.5 g/dL (6.0-8.4)
[2016-09-10 17:59] LABS: ALT 32 IU/L (12-78); AST 39 IU/L (10-40)
[2016-09-10 19:18] LABS: PCO2 54 mmHg (35-45); PO2 60 mmHg (80-90)
[2016-09-10 19:51] LABS: MAGNESIUM 1.9 mg/dL (1.8-2.6)
[2016-09-10 20:00] LABS: ALBUMIN 3.9 gm/dL (3.5-5.0); ALK PHOS 70 IU/L (33-138); ALT 30 IU/L (12-78); AST 35 IU/L (10-40); BLOOD UREA NITROGEN 12 mg/dL (6-24); CALCIUM 8.9 mg/dL (8.5-10.5); CREATININE 0.6 mg/dL (0.5-1.1); ESTIMATED GFR (MDRD EQUATION) > 60; TOTAL PROTEIN 7.5 g/dL (6.0-8.4)
[2016-09-10 20:12] LABS: CHLORIDE 65 mMol/L (96-110); SODIUM 121 mMol/L (135-145)
[2016-09-10 20:16] LABS: POTASSIUM 1.9 mMol/L (3.7-5.1)
[2016-09-10] MEDS ORDERED: PRENATAL 1+1)(P1 TAB PO (20:28)
[2016-09-10] MEDS ORDERED: PREVACID15 MG PO (20:29)
[2016-09-10 20:30] LABS: CO2 42 mMol/L (22-32)
[2016-09-10] MEDS ORDERED: KLONOPIN0.5 MG PO (20:30)
[2016-09-10 21:49] LABS: ANION GAP 15.9 (10.0-19.0)
[2016-09-10 23:31] LABS: BICARBONATE 52.5 mmol/L (18.0-23.0); LACTATE 0.9 mEq/L (0.50-1.60); PCO2 56 mmHg (35-45); PO2 88 mmHg (80-90)
[2016-09-10 23:31] LABS: ALBUMIN 3.6 gm/dL (3.5-5.0); BLOOD UREA NITROGEN 10 mg/dL (6-24); CALCIUM 8.6 mg/dL (8.5-10.5); CREATININE 0.7 mg/dL (0.5-1.1); ESTIMATED GFR (MDRD EQUATION) > 60; SODIUM 127 mMol/L (135-145)
[2016-09-10 23:32] LABS: ANION GAP 11.9 (10.0-19.0); CHLORIDE 76 mMol/L (96-110); CO2 42 mMol/L (22-32); MAGNESIUM 2.8 mg/dL (1.8-2.6); PHOSPHORUS 1.2 mg/dL (2.5-4.9); POTASSIUM 2.9 mMol/L (3.7-5.1)
[2016-09-10 23:45] LABS: BILIRUBIN URINE NEGATIVE (NEGATIVE); BLOOD URINE NEGATIVE /UL (NEGATIVE); COLOR URINE YELLOW (YELLOW); GLUCOSE URINE NEGATIVE (NEGATIVE); KETONE URINE NEGATIVE (NEGATIVE); LEUKOCYTES URINE 100 /UL (NEGATIVE); NITRITE URINE NEGATIVE (NEGATIVE); PROTEIN URINE NEGATIVE (NEGATIVE); TURBIDITY URINE CLEAR (CLEAR); UROBILINOGEN URINE NORMAL (NORMAL)
[2016-09-10 23:55] LABS: BACTERIA URINE NEGATIVE (NEGATIVE); EPITHELIAL URINE 0-2 #/HPF (NEGATIVE); RBC URINE NEGATIVE #/HPF (NEGATIVE)
[2016-09-11 00:16] LABS: AMPHETAMINE NEGATIVE (NEGATIVE); BARBITURATE NEGATIVE (NEGATIVE); COCAINE NEGATIVE (NEGATIVE); OPIATES NEGATIVE (NEGATIVE)
[2016-09-11 03:23] LABS: EOSINOPHIL % 0.3 %; HEMATOCRIT 29.3 % (33.0-46.0); IMMATURE GRANULOCYTE % 0.4 %; LYMPHOCYTE # 0.6 K/uL (0.8-4.0); LYMPHOCYTE % 7.3 %; MCH 22.4 pg (27.0-34.0); MCHC 30.7 gm/dL (32.0-36.5); MCV 73.1 fl (83.0-98.0); MONOCYTE # 0.6 K/uL (0.0-1.0); MONOCYTE % 7.7 %; MPV 9.9 fl (9.4-12.4); NEUTROPHIL # (ANC) 6.4 K/uL (1.8-7.8); NEUTROPHIL % 84.3 %; NRBC % 0 /100WBC (0-0.00); PLATELET COUNT 217 K/uL (150-450); RBC 4.01 M/uL (3.50-5.50); RDW-CV 20.4 % (11.9-14.6); WBC 7.5 K/uL (4.0-11.0)
[2016-09-11 03:37] LABS: BILIRUBIN URINE NEGATIVE (NEGATIVE); BLOOD URINE NEGATIVE /UL (NEGATIVE); COLOR URINE YELLOW (YELLOW); GLUCOSE URINE NEGATIVE (NEGATIVE); KETONE URINE NEGATIVE (NEGATIVE); LEUKOCYTES URINE 100 /UL (NEGATIVE); NITRITE URINE NEGATIVE (NEGATIVE); PROTEIN URINE NEGATIVE (NEGATIVE); SPEC GRAVITY URINE 1.015 (1.003-1.035); TURBIDITY URINE CLEAR (CLEAR); UROBILINOGEN URINE 1 mg/dL (NORMAL)
[2016-09-11 03:42] LABS: ALBUMIN 3.6 gm/dL (3.5-5.0); ANION GAP 11.6 (10.0-19.0); BLOOD UREA NITROGEN 8 mg/dL (6-24); CALCIUM 8.5 mg/dL (8.5-10.5); CHLORIDE 85 mMol/L (96-110); CO2 37 mMol/L (22-32); CREATININE 0.6 mg/dL (0.5-1.1); ESTIMATED GFR (MDRD EQUATION) > 60; MAGNESIUM 2.5 mg/dL (1.8-2.6); PHOSPHORUS 2.2 mg/dL (2.5-4.9); POTASSIUM 3.6 mMol/L (3.7-5.1); SODIUM 130 mMol/L (135-145)
[2016-09-11 04:14] LABS: BACTERIA URINE NEGATIVE (NEGATIVE); EPITHELIAL URINE 0-2 #/HPF (NEGATIVE); RBC URINE RARE #/HPF (NEGATIVE)
--- NOTE | 2016-09-11 05:19 | NUR ---
Significant Event: Patient admitted from ER at 2012. She is A/O, cooperative et pleasant. Follows commands. Denies pain or discomfort. LS clear, 1L O2 applied per NC for sats <90. Seizure precautions initiated, no seizure activity noted. EtCO2 consistently high, MD aware, call if >65. Follow up: Q4H labs, call results to Dr Younger.
[2016-09-11 07:26] LABS: BILIRUBIN URINE NEGATIVE (NEGATIVE); BLOOD URINE NEGATIVE /UL (NEGATIVE); COLOR URINE YELLOW (YELLOW); GLUCOSE URINE NEGATIVE (NEGATIVE); KETONE URINE NEGATIVE (NEGATIVE); LEUKOCYTES URINE 100 /UL (NEGATIVE); NITRITE URINE NEGATIVE (NEGATIVE); PROTEIN URINE NEGATIVE (NEGATIVE); TURBIDITY URINE CLEAR (CLEAR); UROBILINOGEN URINE 1 mg/dL (NORMAL)
[2016-09-11 07:33] LABS: ALBUMIN 3.5 gm/dL (3.5-5.0); BLOOD UREA NITROGEN 8 mg/dL (6-24); CALCIUM 8.4 mg/dL (8.5-10.5); CHLORIDE 90 mMol/L (96-110); CO2 34 mMol/L (22-32); CREATININE 0.6 mg/dL (0.5-1.1); ESTIMATED GFR (MDRD EQUATION) > 60; SODIUM 132 mMol/L (135-145)
[2016-09-11 07:34] LABS: ANION GAP 12.1 (10.0-19.0); MAGNESIUM 2.5 mg/dL (1.8-2.6); PHOSPHORUS 1.2 mg/dL (2.5-4.9); POTASSIUM 4.1 mMol/L (3.7-5.1)
[2016-09-11 08:07] LABS: EPITHELIAL URINE NEGATIVE #/HPF (NEGATIVE); RBC URINE RARE #/HPF (NEGATIVE)
[2016-09-11 08:08] LABS: BACTERIA URINE RARE (NEGATIVE)
[2016-09-11 11:21] LABS: BILIRUBIN URINE NEGATIVE (NEGATIVE); BLOOD URINE NEGATIVE /UL (NEGATIVE); GLUCOSE URINE NEGATIVE (NEGATIVE); KETONE URINE NEGATIVE (NEGATIVE); LEUKOCYTES URINE 25 /UL (NEGATIVE); NITRITE URINE NEGATIVE (NEGATIVE); PROTEIN URINE NEGATIVE (NEGATIVE); SPEC GRAVITY URINE 1.005 (1.003-1.035); UROBILINOGEN URINE 4 mg/dL (NORMAL)
[2016-09-11 11:37] LABS: COLOR URINE YELLOW (YELLOW); TURBIDITY URINE CLEAR (CLEAR)
[2016-09-11 11:38] LABS: BACTERIA URINE RARE (NEGATIVE); EPITHELIAL URINE RARE #/HPF (NEGATIVE); RBC URINE 0-2 #/HPF (NEGATIVE)
[2016-09-11 11:45] LABS: ALBUMIN 3.5 gm/dL (3.5-5.0); BLOOD UREA NITROGEN 8 mg/dL (6-24); CALCIUM 8.2 mg/dL (8.5-10.5); CHLORIDE 90 mMol/L (96-110); CREATININE 0.7 mg/dL (0.5-1.1); ESTIMATED GFR (MDRD EQUATION) > 60; MAGNESIUM 2.2 mg/dL (1.8-2.6); SODIUM 133 mMol/L (135-145)
[2016-09-11 11:48] LABS: ANION GAP 9.1 (10.0-19.0); CO2 37 mMol/L (22-32); PHOSPHORUS 1.5 mg/dL (2.5-4.9); POTASSIUM 3.1 mMol/L (3.7-5.1)
--- NOTE | 2016-09-11 12:26 | NUR ---
CONSULT RECEIVED FOR HIGH PROTEIN DIET. PHONED RN, PT HAS ORDER FOR HIGH PROTEIN DIET, NOT A CONSULT. WILL ASSIST NEEDED.
[2016-09-11 15:19] LABS: ALBUMIN 3.6 gm/dL (3.5-5.0); BLOOD UREA NITROGEN 7 mg/dL (6-24); CREATININE 0.6 mg/dL (0.5-1.1); ESTIMATED GFR (MDRD EQUATION) > 60; MAGNESIUM 2.1 mg/dL (1.8-2.6); PHOSPHORUS 2.3 mg/dL (2.5-4.9); POTASSIUM 3.3 mMol/L (3.7-5.1)
[2016-09-11 15:30] LABS: CHLORIDE 88 mMol/L (96-110); CO2 37 mMol/L (22-32)
[2016-09-11 15:31] LABS: ANION GAP 5.3 (10.0-19.0); SODIUM 127 mMol/L (135-145)
[2016-09-11 15:31] LABS: BILIRUBIN URINE NEGATIVE (NEGATIVE); BLOOD URINE 25 /UL (NEGATIVE); COLOR URINE YELLOW (YELLOW); GLUCOSE URINE NEGATIVE (NEGATIVE); KETONE URINE NEGATIVE (NEGATIVE); LEUKOCYTES URINE 500 /UL (NEGATIVE); NITRITE URINE NEGATIVE (NEGATIVE); PROTEIN URINE 15 mg/dL (NEGATIVE); SPEC GRAVITY URINE 1.015 (1.003-1.035); UROBILINOGEN URINE 4 mg/dL (NORMAL)
[2016-09-11 15:36] LABS: TURBIDITY URINE 2+ (CLEAR)
[2016-09-11 15:41] LABS: RBC URINE 0-2 #/HPF (NEGATIVE)
[2016-09-11 15:43] LABS: BACTERIA URINE FEW (NEGATIVE); EPITHELIAL URINE 0-2 #/HPF (NEGATIVE); MUCUS URINE 1+ (NEGATIVE); RENAL EPITH URINE 0-2 #/HPF (NEGATIVE)
[2016-09-11 15:44] LABS: GRANULAR CASTS URINE 0-2 #/LPF (NEGATIVE); HYALINE CAST URINE 0-2 #/LPF (NEGATIVE)
--- NOTE | 2016-09-11 17:25 | NUR ---
Significant Event: Patient alert and oriented x3, can be confused at times. Up with 1 assist to chair. Bath given. IV infusing with no complications. Patient remains on a fluid restriction of 2000mL has only had around 600mL in orally. CIWA score of 4 with last assessment. Q4hour labs and urinalysis to be called to Dr. Younger. Patient is PCU status. Pleasant and cooperative with cares. Has rested well during shift. Follow up: Transfer to PCU
[2016-09-11 19:23] LABS: BILIRUBIN URINE NEGATIVE (NEGATIVE); BLOOD URINE NEGATIVE /UL (NEGATIVE); GLUCOSE URINE NEGATIVE (NEGATIVE); KETONE URINE NEGATIVE (NEGATIVE); LEUKOCYTES URINE 25 /UL (NEGATIVE); NITRITE URINE NEGATIVE (NEGATIVE); PROTEIN URINE NEGATIVE (NEGATIVE); UROBILINOGEN URINE NORMAL (NORMAL)
[2016-09-11 19:24] LABS: COLOR URINE STRAW (YELLOW); TURBIDITY URINE CLEAR (CLEAR)
[2016-09-11 19:32] LABS: EPITHELIAL URINE RARE #/HPF (NEGATIVE); RBC URINE NEGATIVE #/HPF (NEGATIVE); WBC URINE 0-2 #/HPF (NEGATIVE)
[2016-09-11 19:33] LABS: BACTERIA URINE NEGATIVE (NEGATIVE); MUCUS URINE NEGATIVE (NEGATIVE)
[2016-09-11 19:40] LABS: ALBUMIN 3.3 gm/dL (3.5-5.0); ANION GAP 10.6 (10.0-19.0); BLOOD UREA NITROGEN 9 mg/dL (6-24); CALCIUM 7.9 mg/dL (8.5-10.5); CHLORIDE 92 mMol/L (96-110); CO2 32 mMol/L (22-32); CREATININE 0.7 mg/dL (0.5-1.1); ESTIMATED GFR (MDRD EQUATION) > 60; MAGNESIUM 1.9 mg/dL (1.8-2.6); POTASSIUM 3.6 mMol/L (3.7-5.1); SODIUM 131 mMol/L (135-145)
[2016-09-11 19:46] LABS: PHOSPHORUS 1.2 mg/dL (2.5-4.9)
[2016-09-11 23:26] LABS: ALBUMIN 3.3 gm/dL (3.5-5.0); ANION GAP 10.7 (10.0-19.0); BLOOD UREA NITROGEN 11 mg/dL (6-24); CALCIUM 7.7 mg/dL (8.5-10.5); CHLORIDE 95 mMol/L (96-110); CO2 32 mMol/L (22-32); CREATININE 0.6 mg/dL (0.5-1.1); ESTIMATED GFR (MDRD EQUATION) > 60; MAGNESIUM 1.7 mg/dL (1.8-2.6); POTASSIUM 3.7 mMol/L (3.7-5.1); SODIUM 134 mMol/L (135-145)
[2016-09-11 23:27] LABS: BILIRUBIN URINE NEGATIVE (NEGATIVE); BLOOD URINE NEGATIVE /UL (NEGATIVE); COLOR URINE YELLOW (YELLOW); GLUCOSE URINE NEGATIVE (NEGATIVE); KETONE URINE NEGATIVE (NEGATIVE); LEUKOCYTES URINE 25 /UL (NEGATIVE); NITRITE URINE NEGATIVE (NEGATIVE); PROTEIN URINE NEGATIVE (NEGATIVE); TURBIDITY URINE CLEAR (CLEAR); UROBILINOGEN URINE NORMAL (NORMAL)
[2016-09-11 23:32] LABS: PHOSPHORUS 0.7 mg/dL (2.5-4.9)
[2016-09-11 23:41] LABS: BACTERIA URINE NEGATIVE (NEGATIVE); EPITHELIAL URINE 0-2 #/HPF (NEGATIVE); RBC URINE NEGATIVE #/HPF (NEGATIVE); WBC URINE 0-2 #/HPF (NEGATIVE)
[2016-09-12 04:34] LABS: BASOPHIL % 0.6 %; EOSINOPHIL # 0.2 K/uL (0.0-0.5); EOSINOPHIL % 2.3 %; HEMATOCRIT 28.6 % (33.0-46.0); HEMOGLOBIN 8.5 g/dL (10.0-15.0); IMMATURE GRANULOCYTE % 0.6 %; LYMPHOCYTE % 13.5 %; MCH 22.5 pg (27.0-34.0); MCHC 29.7 gm/dL (32.0-36.5); MCV 75.7 fl (83.0-98.0); MONOCYTE # 0.6 K/uL (0.0-1.0); MONOCYTE % 8.5 %; MPV 9.9 fl (9.4-12.4); NEUTROPHIL # (ANC) 5.2 K/uL (1.8-7.8); NEUTROPHIL % 74.5 %; NRBC % 0 /100WBC (0-0.00); PLATELET COUNT 216 K/uL (150-450); RBC 3.78 M/uL (3.50-5.50); RDW-CV 20.7 % (11.9-14.6)
[2016-09-12 04:49] LABS: BILIRUBIN URINE NEGATIVE (NEGATIVE); BLOOD URINE NEGATIVE /UL (NEGATIVE); COLOR URINE COLORLESS (YELLOW); GLUCOSE URINE NEGATIVE (NEGATIVE); KETONE URINE NEGATIVE (NEGATIVE); LEUKOCYTES URINE 100 /UL (NEGATIVE); NITRITE URINE NEGATIVE (NEGATIVE); PROTEIN URINE NEGATIVE (NEGATIVE); TURBIDITY URINE CLEAR (CLEAR); UROBILINOGEN URINE NORMAL (NORMAL)
[2016-09-12 04:54] LABS: ALBUMIN 3.2 gm/dL (3.5-5.0); BLOOD UREA NITROGEN 10 mg/dL (6-24); CALCIUM 7.9 mg/dL (8.5-10.5); CHLORIDE 94 mMol/L (96-110); CO2 27 mMol/L (22-32); CREATININE 0.5 mg/dL (0.5-1.1); ESTIMATED GFR (MDRD EQUATION) > 60; MAGNESIUM 1.9 mg/dL (1.8-2.6); POTASSIUM 3.2 mMol/L (3.7-5.1)
[2016-09-12 04:56] LABS: ANION GAP 10.2 (10.0-19.0); PHOSPHORUS 0.9 mg/dL (2.5-4.9); SODIUM 128 mMol/L (135-145)
[2016-09-12 05:11] LABS: BACTERIA URINE NEGATIVE (NEGATIVE); EPITHELIAL URINE 0-2 #/HPF (NEGATIVE); RBC URINE NEGATIVE #/HPF (NEGATIVE)
--- NOTE | 2016-09-12 05:20 | NUR ---
Significant Event: ICU transfer at 1850. A&Ox3. States she has numbess to toes and fingers that has been here since start of hospital stay. Seizure precautions. CIWA scoring. Up 1 Assist GB. On tele HR low 100s to upper 90s. Runs hypotensive SBP upper 90s to low 100s. On RA. CO2 monitor. Peacock large urine output. 2000 ml fluid restriction. High protien diet. Has Lac to back of head that is stapled and open to air. IV to L) AC SL. IV to R) wrist running D5W at 350ml/hr. States she has a headache but denies anything for pain. Follow up: Labs Q4 hrs call Dr. Younger with results
[2016-09-12 09:25] LABS: BILIRUBIN URINE NEGATIVE (NEGATIVE); BLOOD URINE NEGATIVE /UL (NEGATIVE); GLUCOSE URINE NEGATIVE (NEGATIVE); KETONE URINE NEGATIVE (NEGATIVE); LEUKOCYTES URINE 100 /UL (NEGATIVE); NITRITE URINE NEGATIVE (NEGATIVE); PROTEIN URINE NEGATIVE (NEGATIVE); UROBILINOGEN URINE NORMAL (NORMAL)
[2016-09-12 09:36] LABS: COLOR URINE YELLOW (YELLOW); TURBIDITY URINE CLEAR (CLEAR)
[2016-09-12 09:37] LABS: BACTERIA URINE RARE (NEGATIVE); EPITHELIAL URINE RARE #/HPF (NEGATIVE); RBC URINE 0-2 #/HPF (NEGATIVE)
[2016-09-12 09:37] LABS: ALBUMIN 3.5 gm/dL (3.5-5.0); BLOOD UREA NITROGEN 8 mg/dL (6-24); CALCIUM 8.1 mg/dL (8.5-10.5); CHLORIDE 97 mMol/L (96-110); CO2 26 mMol/L (22-32); CREATININE 0.6 mg/dL (0.5-1.1); ESTIMATED GFR (MDRD EQUATION) > 60; MAGNESIUM 1.9 mg/dL (1.8-2.6)
[2016-09-12 09:39] LABS: PHOSPHORUS 0.8 mg/dL (2.5-4.9); SODIUM 136 mMol/L (135-145)
[2016-09-12 13:58] LABS: ALBUMIN 3.1 gm/dL (3.5-5.0); ANION GAP 14.6 (10.0-19.0); BLOOD UREA NITROGEN 7 mg/dL (6-24); CALCIUM 7.6 mg/dL (8.5-10.5); CHLORIDE 101 mMol/L (96-110); CO2 25 mMol/L (22-32); CREATININE 0.5 mg/dL (0.5-1.1); ESTIMATED GFR (MDRD EQUATION) > 60; MAGNESIUM 1.8 mg/dL (1.8-2.6); POTASSIUM 3.6 mMol/L (3.7-5.1); SODIUM 137 mMol/L (135-145)
[2016-09-12 14:01] LABS: PHOSPHORUS 0.6 mg/dL (2.5-4.9)
--- NOTE | 2016-09-12 14:09 | NUR ---
Introduced self and CM role to Rebecca. I am familiar with her from her previous admission to [facility]. 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 Inquired about her living in a hotel of [facility] as that is what I had read in some reports and she tells me that she "did stay in a hotel for a couple days while Nya was gone but other than that no." I asked if she had her wallet or any personal items here and she tells me that they are all in [place] at [employer] bro. I inquired if she would be wanting any sort of help for her alcohol issues, to which she tells me no she doesn't, but I did go ahead and leave her resources anyways. Told her that I also left numbers to [employer], [employer], [facility], [facility] and other resources for her as well. She tells me that her plan when ready to dismiss from here is to "call Nya and see if she will come and pick me up and then take me to my stuff and I will just figure it out from there." Let her know if Nya couldn't come and get her, she would need to get in contact with some family or other friends to see if they might be able to help her out or we would most likely get her a cab and then have her go to [employer] until she could get her next move figured out. She voiced understanding to this. Talked with her about her plan she shared with me last time about going to live up near her brother in [place], [place], to which she tells me she would still like to get up that way, but wasn't for sure if it was going to happen or not. I think she is still slightly confused about what is all going on at this point, she seemed to be a bit confused when we were talking but did manage to carry on the above conversation with me. No other questions, needs or concerns. CM to continue to follow and assist.
--- NOTE | 2016-09-12 17:11 | NUR ---
Significant Event:VSS, denies pain. Initially had N/T in finger tips/toes. Denies N/T now. No sz activity. PEERL, pt states name/ accurately, place at times. Equal strength in all extremities. N(137), K(3.6), Mg(1.8) levels improving. Continues on Q4H Na Osmo, Renal lab draws. Next lab draw at 2100. Urine Na levels dc'd. CIWAA score 2, for slight sweats, anxiousness. Pysch consult ordered, called to [facility] confirmed they got the order. Ramez, Therapist stated MD would be over today. Laceration to back of head is dry/intact/stapled/open to air. Peacock intact, IVD5W at 250ml/Hr per R wrist. LAC SL. Yassine Carrero Mgt visited with pt, because she is now homeless and wants to return to [employer] Follow up:Monitor, Psych consult
[2016-09-12 17:48] LABS: ALBUMIN 3.2 gm/dL (3.5-5.0); ANION GAP 8.8 (10.0-19.0); BLOOD UREA NITROGEN 6 mg/dL (6-24); CALCIUM 7.6 mg/dL (8.5-10.5); CHLORIDE 103 mMol/L (96-110); CO2 29 mMol/L (22-32); CREATININE 0.6 mg/dL (0.5-1.1); ESTIMATED GFR (MDRD EQUATION) > 60; MAGNESIUM 1.8 mg/dL (1.8-2.6); PHOSPHORUS 0.7 mg/dL (2.5-4.9); POTASSIUM 3.8 mMol/L (3.7-5.1); SODIUM 137 mMol/L (135-145)
[2016-09-12 22:05] LABS: CALCIUM 7.6 mg/dL (8.5-10.5); CHLORIDE 105 mMol/L (96-110); CO2 25 mMol/L (22-32); CREATININE 0.5 mg/dL (0.5-1.1); ESTIMATED GFR (MDRD EQUATION) > 60; MAGNESIUM 1.7 mg/dL (1.8-2.6); SODIUM 139 mMol/L (135-145)
[2016-09-12 22:06] LABS: BLOOD UREA NITROGEN 10 mg/dL (6-24); PHOSPHORUS 0.7 mg/dL (2.5-4.9)
[2016-09-13 01:42] LABS: ANION GAP 13.8 (10.0-19.0); BLOOD UREA NITROGEN 10 mg/dL (6-24); CALCIUM 7.6 mg/dL (8.5-10.5); CHLORIDE 104 mMol/L (96-110); CO2 22 mMol/L (22-32); CREATININE 0.5 mg/dL (0.5-1.1); ESTIMATED GFR (MDRD EQUATION) > 60; MAGNESIUM 1.6 mg/dL (1.8-2.6); PHOSPHORUS 0.7 mg/dL (2.5-4.9); POTASSIUM 3.8 mMol/L (3.7-5.1); SODIUM 136 mMol/L (135-145)
--- NOTE | 2016-09-13 02:21 | NUR ---
Significant Event: A/Ox3. Numbness and tingling to hands and feet. CIWA score 1. 1A with gait belt and walker. Seizure precaution pads up. 2000ml fluid restriction. Laceration to posterior head with umm. D5W at 250ml/hr to right wrist IV. Labs q4h. Follow up: Psych consult
[2016-09-13 04:59] LABS: BASOPHIL % 0.6 %; EOSINOPHIL # 0.2 K/uL (0.0-0.5); EOSINOPHIL % 3.7 %; HEMATOCRIT 28.3 % (33.0-46.0); HEMOGLOBIN 8.4 g/dL (10.0-15.0); IMMATURE GRANULOCYTE % 0.5 %; LYMPHOCYTE # 0.9 K/uL (0.8-4.0); LYMPHOCYTE % 14.8 %; MCHC 29.7 gm/dL (32.0-36.5); MCV 77.3 fl (83.0-98.0); MONOCYTE # 0.7 K/uL (0.0-1.0); MONOCYTE % 10.7 %; MPV 9.9 fl (9.4-12.4); NEUTROPHIL # (ANC) 4.4 K/uL (1.8-7.8); NEUTROPHIL % 69.7 %; NRBC % 0 /100WBC (0-0.00); PLATELET COUNT 215 K/uL (150-450); RBC 3.66 M/uL (3.50-5.50); RDW-CV 21.5 % (11.9-14.6); WBC 6.3 K/uL (4.0-11.0)
[2016-09-13 05:16] LABS: ANION GAP 9.7 (10.0-19.0); BLOOD UREA NITROGEN 9 mg/dL (6-24); CALCIUM 7.7 mg/dL (8.5-10.5); CHLORIDE 104 mMol/L (96-110); CO2 26 mMol/L (22-32); CREATININE 0.5 mg/dL (0.5-1.1); ESTIMATED GFR (MDRD EQUATION) > 60; MAGNESIUM 1.6 mg/dL (1.8-2.6); PHOSPHORUS 0.7 mg/dL (2.5-4.9); POTASSIUM 3.7 mMol/L (3.7-5.1); SODIUM 136 mMol/L (135-145)
--- NOTE | 2016-09-13 15:45 | NUR ---
A&O-MAKES "OFF TO WALL STATEMENTS". SBA. SBP 90'S-100'S. HR NS 90'S. RA. AFEBRILE. NO C/O PAIN. LS CLEAR. BS ACTIVE, NO BM X3 DAYS ID MIRILAX TODAY. ALVARADO INTACT WITH 3625ML UO. D5W AT 100 TO R DWRIST. REPLACED MG AND KPHOS TODAY. LACERATION TO BACK OF HEAN LOUIS INTACT. PT SHOWERED TODAY. DC FLUID RESTRICTION TODAY. PERRLA 2MM BRISK. L AC IV DC'D PURULENT DRAINAGE NOTED CLEANED AND BANDAGED. PLAN IS-- PT HOMELESS, LOOKING FOR PLACEMENT.
[2016-09-13 21:25] LABS: ALBUMIN 3.1 gm/dL (3.5-5.0); ANION GAP 14.7 (10.0-19.0); BLOOD UREA NITROGEN 10 mg/dL (6-24); CALCIUM 7.4 mg/dL (8.5-10.5); CHLORIDE 108 mMol/L (96-110); CO2 21 mMol/L (22-32); CREATININE 0.5 mg/dL (0.5-1.1); ESTIMATED GFR (MDRD EQUATION) > 60; PHOSPHORUS 2.3 mg/dL (2.5-4.9); POTASSIUM 4.7 mMol/L (3.7-5.1); SODIUM 139 mMol/L (135-145)
--- NOTE | 2016-09-14 03:40 | NUR ---
Significant Event: a/ox3. denies numbness and tingling. moves all extremitites spontaneously and to command. pupils 2.0 and brisk. lungs clear on room air. grimm intact for accurate I&Os. intake: PO-2000, IV-1300; output-4400. IV to right wrist running D5W at 100/hr. no complaints of pain. afebrile. SBP in 100s. hr in 90s. IV to left AC infiltrated on day shift - yellow wound bed, hard underneath skin. applied petroleum gauze and kerlix wrap. up sba assist. Follow up: placement, psych consult
[2016-09-14 04:57] LABS: BASOPHIL % 0.8 %; EOSINOPHIL # 0.2 K/uL (0.0-0.5); EOSINOPHIL % 4.3 %; HEMATOCRIT 29.6 % (33.0-46.0); HEMOGLOBIN 8.7 g/dL (10.0-15.0); IMMATURE GRANULOCYTE % 0.8 %; LYMPHOCYTE # 0.9 K/uL (0.8-4.0); LYMPHOCYTE % 17.6 %; MCH 22.7 pg (27.0-34.0); MCHC 29.4 gm/dL (32.0-36.5); MCV 77.3 fl (83.0-98.0); MONOCYTE # 0.6 K/uL (0.0-1.0); MPV 8.9 fl (9.4-12.4); NEUTROPHIL # (ANC) 3.4 K/uL (1.8-7.8); NEUTROPHIL % 65.5 %; NRBC % 0 /100WBC (0-0.00); PLATELET COUNT 222 K/uL (150-450); RBC 3.83 M/uL (3.50-5.50); RDW-CV 22.5 % (11.9-14.6); WBC 5.2 K/uL (4.0-11.0)
[2016-09-14 05:11] LABS: ALBUMIN 3.1 gm/dL (3.5-5.0); ANION GAP 10.2 (10.0-19.0); BLOOD UREA NITROGEN 6 mg/dL (6-24); CALCIUM 7.6 mg/dL (8.5-10.5); CHLORIDE 108 mMol/L (96-110); CO2 25 mMol/L (22-32); CREATININE 0.4 mg/dL (0.5-1.1); ESTIMATED GFR (MDRD EQUATION) > 60; PHOSPHORUS 1.8 mg/dL (2.5-4.9); POTASSIUM 4.2 mMol/L (3.7-5.1); SODIUM 139 mMol/L (135-145)
--- NOTE | 2016-09-14 09:47 | NUR ---
Significant Event:In room, denies pain. A/O x3. LS clear and diminished. Abd soft with active BS. Laceration to back of head clean and dry. Pupils 3mm and brisk. Hand grasp strong. Ate well. States doesn't take Tylenol. Makes her feel weird. Routine ordered Valium given. Left AC has white area with redness around it, that is swollen and warm to touch. Patient c/o pain with touch and states yellow drng coming out when she squeezes it.
[2016-09-14 19:24] LABS: ALBUMIN 3.1 gm/dL (3.5-5.0); ANION GAP 13.7 (10.0-19.0); BLOOD UREA NITROGEN 7 mg/dL (6-24); CHLORIDE 106 mMol/L (96-110); CO2 22 mMol/L (22-32); CREATININE 0.5 mg/dL (0.5-1.1); ESTIMATED GFR (MDRD EQUATION) > 60; POTASSIUM 4.7 mMol/L (3.7-5.1); SODIUM 137 mMol/L (135-145)
[2016-09-14 19:25] LABS: CALCIUM 7.4 mg/dL (8.5-10.5)
--- NOTE | 2016-09-15 03:56 | NUR ---
Significant Event: A/OX3. DENIES NUBMNESS AND TINGLING. MOVES ALL EXTREMITIES SPONTANEOUSLY AND TO COMMAND. MODERATE, EQUAL STRENGHT. PUPILS 2.O AND BRISK. AMBULATED IN LEAL X8 LAPS. AFEBRILE. SBP IN 110S. HR IN 90S-100S. LUNGS CLEAR ON ROOM AIR. IV TO RIGHT WRIST SALINE LOCKED. LEFT AC HAS SPOT WHERE OLD IV INFILTRATED - SWOLLEN/RED, WOUND BED YELLOW. STARTED ON PO ANTIBIOTICS. NO EDEMA. ALVARADO INTACT FOR STRICK I&O. LACERATION TO BACK OF HEAD WITH LOUIS. NO COMPLAINTS OF PAIN. UP 1 ASSIST GAIT BELT. Follow up: PSYCH CONSULT. PLACEMENT
[2016-09-15 07:03] LABS: BASOPHIL % 0.7 %; EOSINOPHIL # 0.2 K/uL (0.0-0.5); EOSINOPHIL % 3.5 %; HEMATOCRIT 29.2 % (33.0-46.0); HEMOGLOBIN 8.6 g/dL (10.0-15.0); IMMATURE GRANULOCYTE % 0.7 %; LYMPHOCYTE # 0.9 K/uL (0.8-4.0); LYMPHOCYTE % 20.2 %; MCH 22.9 pg (27.0-34.0); MCHC 29.5 gm/dL (32.0-36.5); MCV 77.9 fl (83.0-98.0); MONOCYTE # 0.7 K/uL (0.0-1.0); MONOCYTE % 15.3 %; MPV 9.1 fl (9.4-12.4); NEUTROPHIL # (ANC) 2.7 K/uL (1.8-7.8); NEUTROPHIL % 59.6 %; NRBC % 0 /100WBC (0-0.00); PLATELET COUNT 234 K/uL (150-450); RBC 3.75 M/uL (3.50-5.50); RDW-CV 22.9 % (11.9-14.6); WBC 4.5 K/uL (4.0-11.0)
[2016-09-15 07:26] LABS: ALBUMIN 3.1 gm/dL (3.5-5.0); ALK PHOS 65 IU/L (33-138); ALT 110 IU/L (12-78); ANION GAP 12.4 (10.0-19.0); AST 88 IU/L (10-40); CALCIUM 8.1 mg/dL (8.5-10.5); CHLORIDE 106 mMol/L (96-110); CO2 24 mMol/L (22-32); CREATININE 0.4 mg/dL (0.5-1.1); ESTIMATED GFR (MDRD EQUATION) > 60; POTASSIUM 4.4 mMol/L (3.7-5.1); SODIUM 138 mMol/L (135-145); TOTAL PROTEIN 6.3 g/dL (6.0-8.4)
[2016-09-15 07:28] LABS: BLOOD UREA NITROGEN 11 mg/dL (6-24); TOTAL BILIRUBIN 0.3 mg/dL (0.0-1.5)
--- NOTE | 2016-09-15 12:01 | NUR ---
A - PT SCREENED D/T LENGTH OF STAY. HT: 162.56CM, WT: 147#, IBW: 54.5 KG, %IBW: 123%, BMI 25.3. PSY CONSULT, HOMELESS, WAITING FOR PLACEMENT. LABS: CREA 0.4, ALB 3.1, PRE-ALB 21, AST 88, ALT 110. MEDS: THIAMINE, KEFLEX. DIET: REGULAR W/ ENSURE ENLIVE BID. INTAKE 100% ALL MEALS AND ORAL SUPPLEMENT 50% X1 NOTED. GOOD APPETITE PER PATIENT. MD ORDERED FOR HIGH PROTEIN DIET, ENSURE ENLIVE BID SCHEDULED. PT DOES NOT CARE FOR IT BUT WILL DRINK. AGREED TO TRY DIFFERENT OPTION. EST NEEDS: [id number] KCAL, 55-66 GRAMS PROTEIN, FLUID NEEDS: 1ML/KCAL D - NO NUTRITION DIAGNOSIS AT THIS TIME. I - CHANGING ENSURE ENLIVE BID TO CIB 2X/DAY (HIGH PROTEIN PER MD ORDER) M/E - GOAL: PT WILL CONTINUE TO TOLERATE >75% OF MEALS AND AT LEAST ONE ORAL SUPPLEMENT PER DAY IN 5-7 DAYS.
--- NOTE | 2016-09-15 13:52 | NUR ---
Significant Event: VSS. PATIENT A/O X 3. FOLLOWS COMMANDS. MODERATE AND EQUAL STRENGTH. PUPILS 2MM, BRISK. LUNGS CLEAR AND DIM ON ROOM AIR. BOWELS ACTIVE. CHRISTIANO NOEL'Aurelia TODAY AT 1120, HAS VOIDED SINCE. DENIES PAIN SO FAR THIS SHIFT. IV IN RT WRIST SALINE LOCKED. REG DIET. UP WITH STANDBY ASSIST. AWAITING PSYCH TO SEE YET TODAY. ALARMS ON FOR SAFETY. Follow up: DISCHARGE TMRW.
--- NOTE | 2016-09-15 16:04 | NUR ---
Social visit with Rebecca today. She was wanting me to contact her friend, Nya, who she had been staying with for a short time before coming into [facility]. I let her know that I would do this. She tells me that it is her hope that Nya will be able to pick her up and take her to [facility], where all of her things are, so she can grab them and then make her way to [place] where she hopes to live when she leaves here. Rebecca tells me that she isn't interested in going to inpatient treatment for her alcohol issues at this time, but would be open to going to some counseling. I wasn't for sure what was available to her in the [place] so I let her know that I would do some research and then get back to her. When I left her room I called to [employer], where Nya works, and talked with Nya. Nya tells me that she has things going on in her personal life that isn't going to allow her to let Rebecca stay with her anymore or be able to pick her up from the hospital. She suggested that I try to call her nephew, Taryn Crane [phone], to see if he might be able to pick her up and bring her to [facility] to get her things so she can move to [place] or whereever she want to move to. I did try to contact Taryn, but he didn't answer and I haven't received a phone call back from him at this time. Nya states that her and her family "had been gone for a few days, so they were being nice and put Rebecca up on a hotel for a few night before she came into the hospital. I wasn't really friends with her, I had just worked with her a few years back and when she had called the post office I just felt bad so I tried to help her out a bit, not knowing her drinking habits and then this all happened. I have young kids at home so I can't be having her here around my kids. I have to think about what is best for them. She can come and get her things that she has here, but she can't stay here anymore. I have been in contact with her nephew, Taryn, as well as one of her trading manager, Humberto Melton out of [place] in the last few days, and I pretty much told them they need to step up and help out because I wasn't going to help anymore." Let her know that this was fine and I would try to work with Rebecca to come up with a different plan upon dismissal. Also called to [facility] to get some resources from them. RN on the phone tells me that [facility] is most likley the best bet for Rebecca to go to as she has no insurance coverage. She also suggests AA meetings as well. I wrote down the name and numbers to counseling services and AA meetings in [place] and gave those to Rebecca. Talked with her about Nya not being able to come and pick her up and that she needed to work on getting ahold of her nephew to come and pick her up when she leaves here or trying other family. She tells me she will work on this tonight. Told her that if she didn't have a ride or anyone to come and get her tomorrow, and if doctor cleared her to dismiss, the best I could help her do would be to get her a taxi voucher to [facility] here in town and then she would have to figure things out from there. Rebecca tells me she really doesn't want to do this so she is going to try to get ahold of her nephew, Taryn, or another nephew whos' number she will get from Taryn to see if one of them can come and get her tomorrow. No other questions, needs or concerns. CM to continue to follow and assist.
[2016-09-15 19:53] LABS: ALBUMIN 3.6 gm/dL (3.5-5.0); ANION GAP 13.4 (10.0-19.0); BLOOD UREA NITROGEN 11 mg/dL (6-24); CALCIUM 8.5 mg/dL (8.5-10.5); CHLORIDE 106 mMol/L (96-110); CO2 22 mMol/L (22-32); CREATININE 0.6 mg/dL (0.5-1.1); ESTIMATED GFR (MDRD EQUATION) > 60; PHOSPHORUS 2.6 mg/dL (2.5-4.9); POTASSIUM 4.4 mMol/L (3.7-5.1); SODIUM 137 mMol/L (135-145)
--- NOTE | 2016-09-16 05:03 | NUR ---
Significant Event: Patient is alert and oriented x3. Follows commands. Denies pain, SHAHID, or N/T. VSS. PERRLA. CIWA is a 0. SR to ST- no edema, 2+ pulses. Room air-c/d throughout. Regular diet-high protein. Last BM 6/-active x4. Up with SBA. Laceration to back of head with umm-intact. R) FA PIV sl'd, is tender. Does drink large amounts of water and coffee-voids frequently. Follow up: Plan for discharge today.
[2016-09-16 07:02] LABS: BASOPHIL % 0.7 %; EOSINOPHIL # 0.2 K/uL (0.0-0.5); EOSINOPHIL % 2.8 %; HEMATOCRIT 31.6 % (33.0-46.0); HEMOGLOBIN 9.4 g/dL (10.0-15.0); IMMATURE GRANULOCYTE % 0.5 %; LYMPHOCYTE % 17.1 %; MCH 22.8 pg (27.0-34.0); MCHC 29.7 gm/dL (32.0-36.5); MCV 76.5 fl (83.0-98.0); MONOCYTE % 16.6 %; MPV 8.6 fl (9.4-12.4); NEUTROPHIL # (ANC) 3.6 K/uL (1.8-7.8); NEUTROPHIL % 62.3 %; NRBC % 0 /100WBC (0-0.00); RBC 4.13 M/uL (3.50-5.50); RDW-CV 23.2 % (11.9-14.6); WBC 5.7 K/uL (4.0-11.0)
[2016-09-16 07:06] LABS: PLATELET COUNT 286 K/uL (150-450)
[2016-09-16 07:17] LABS: ALBUMIN 3.7 gm/dL (3.5-5.0); ANION GAP 13.2 (10.0-19.0); BLOOD UREA NITROGEN 10 mg/dL (6-24); CALCIUM 8.8 mg/dL (8.5-10.5); CHLORIDE 103 mMol/L (96-110); CO2 25 mMol/L (22-32); CREATININE 0.5 mg/dL (0.5-1.1); ESTIMATED GFR (MDRD EQUATION) > 60; POTASSIUM 4.2 mMol/L (3.7-5.1); SODIUM 137 mMol/L (135-145)
[2016-09-16] MEDS ORDERED: KEFLEX500 MG PO (10:44)
[2016-09-16] MEDS ORDERED: B-1100 MG PO (10:45)
[2016-09-16] MEDS ORDERED: MIRALAX17 GM PO (10:46)
[2016-09-16] MEDS ORDERED: ZOLOFT50 MG PO (10:47)
[2016-09-16] MEDS ORDERED: BUSPAR10 MG PO (10:48)
--- NOTE | 2016-09-16 15:05 | NUR ---
Social visit with Rebecca, she tells me that she has made contact with one of her friends who is coming to pick her up at 1300 today to take her to get her things at [facility] and then she is going to [place] from there. I asked her her friends name, but she just avoided the questioned and asked if there was a paper to read today. She denied any other questions, needs or concerns. Plan dismissal with her friend at 1300 today via private auto.
--- NOTE | 2016-09-16 19:20 | NUR ---
Pt reviewed DC instructions, could accurately repeat DC instructions with good understanding. Aurelia x 3 removed from posterior head. Small scant amount of blood noted with removal. Pt tolerated well. CIWAA 0. Pt denies pain or needs. DC per WC with friend to home.
== END 2016-09-16 13:27 | disposition disaster alternative care site (69) | DRG 641 ==
LOC: GACC 15:16 → GNTU 19:26 → GICU 19:26 → GNTU 09-11 18:57
PROVIDERS: Emergency Medicine; Family Medicine; Internal Medicine Nephrology; ADMIT Internal Medicine
DX: E87.1 Hypo-osmolality and hyponatremia (principal); R56.9 Unspecified convulsions; E87.3 Alkalosis; E46 Unspecified protein-calorie malnutrition; E83.39 Other disorders of phosphorus metabolism; F32.9 Major depressive disorder, single episode, unspecified; S01.01XA Laceration without foreign body of scalp, initial encounter; D64.9 Anemia, unspecified; F10.10 Alcohol abuse, uncomplicated; M19.90 Unspecified osteoarthritis, unspecified site; E87.6 Hypokalemia; E87.8 Other disorders of electrolyte and fluid balance, not elsewhere classified; K20.9 Esophagitis, unspecified; K29.20 Alcoholic gastritis without bleeding; T73.0XXS Starvation, sequela; Z91.81 History of falling; Z91.14 Patient's other noncompliance with medication regimen; Z59.0 Homelessness; Z81.1 Family history of alcohol abuse and dependence; Z63.4 Disappearance and death of family member
CPT/HCPCS: G0480; J1650; J2405; J3475; J3480; J7030; J7040; J7050; J7060

== ENCOUNTER 2016-11-25 17:30 | Inpatient (IN) | payer SELFPAY ==
[~2016-11-25] VITALS: Ht 162.6 cm; Wt 63.3 kg
--- NOTE | ~2016-11-25 | HP ---
PATIENT'S NAME: SID CRUZ [facility] AGE: 46 Y [address] ROOM: [id number] [place], [place] [address] LOCATION: [facility] ADMIT DATE: 11/25/2016 History & Physical DISCHARGE DATE: FAMILY PHYSICIAN: PHYSICIAN, UNKNOWN ATTENDING PHYSICIAN: Chevy LÓPEZ DATE OF SERVICE: CHIEF COMPLAINT: Alcohol withdrawal/seizure. HISTORY OF PRESENT ILLNESS: The patient is a 46-year-old female with a past medical history of alcohol abuse, alcohol withdrawal complicated with seizure, depression, and gastritis, who presents here from [place] with hypokalemia, hypomagnesemia, and seizure. According to [place] [facility], the patient was brought in, as she was found to be confused at home. The patient was brought into the emergency department; and on an evaluation there, she was found to have a potassium of 2.1, creatinine of 1.24, and magnesium of 0.7. Urine drug screen was unremarkable and alcohol was undetectable. The patient's initial EKG showed a QTc of 504. CT head was unremarkable. The patient's symptoms improved and was brought here for further evaluation. En route to our hospital, the patient had a tonic-clonic seizure and was given 20 mg of Valium IV and of 4 mg of versed before the seizure was abated. The patient had some postictal confusion after the seizure while en route. The patient is currently with GCS of 15. Alert and oriented x2, does not know where she is. Apparently, she denies any history of alcohol use, reports that she drinks alcohol maybe once in 4 weeks, but however from outside hospital, the patient was recently admitted to the hospital at [place] with alcohol intoxication. According to our chart, the patient has been admitted twice at least in the past 3 months with alcohol intoxication and seizure. On her last admission, the patient was found to be in severe hypokalemia and was admitted in the ICU and was treated with electrolyte supplement. During that admission, the patient was also noted to have seizure, but the patient currently adamantly denies use of alcohol daily. Interestingly, I had actually seen the patient and admitted the patient on September 10, 2016, and during that admission, she actually reported that she drinks alcohol every day. Currently, the patient denies any headache, chest pain, shortness of breath, fever, chills, productive cough, or hallucination. The patient reports that she lives with her , tried to call a number, but unable to get a hold of. The emergency call was her brother and it was called, but the phone was disconnected. PATIENT'S NAME: SID CRUZ [facility] AGE: 46 Y [address] ROOM: [place] [address] LOCATION: [facility] ADMIT DATE: 11/25/2016 History & Physical DISCHARGE DATE: FAMILY PHYSICIAN: PHYSICIAN, UNKNOWN ATTENDING PHYSICIAN: Chevy LÓPEZ MEDICAL HISTORY: Severe esophagitis, alcohol abuse, depression, and a past history of seizure secondary to withdrawal. FAMILY HISTORY: Father has a history of alcohol abuse. SOCIAL HISTORY: The patient reports that she lives with her . Denies smoking and actually currently denying drinking, but from old charts and recent admissions from this hospital and also at [place], has a history of alcohol intoxication. MEDICATIONS: Currently being reconciled. REVIEW OF SYSTEMS: All systems have been reviewed and are negative except for mentioned in the HPI. PHYSICAL EXAMINATION: VITAL SIGNS: Afebrile, blood pressure 112/74, heart rate of 93, respiratory rate of 20, and saturating 95% on room air. GENERAL APPEARANCE: The patient is alert and awake, in no acute distress. HEAD: Normocephalic, atraumatic. EYES: Extraocular muscles intact. NOSE: No nasal discharge. EARS: No ear discharge. MOUTH: No tongue laceration. CHEST: Clear to auscultation bilaterally. HEART: Regular rate and rhythm. No murmur, rubs, or gallops. ABDOMEN: Soft, nontender, and nondistended. Bowel sounds present. SKIN: Warm to touch. [facility]: The patient is alert and oriented x2, not oriented to place. Motor and sensory grossly intact. LABORATORY DATA: Labs that were done at outside hospital, white blood cell count of 7.53, hemoglobin of 10, hematocrit of 32.2, and platelet count of 71. Ethanol undetectable. UDS unremarkable. Creatinine of 1.24, BUN of 14, potassium of 2.1, and magnesium 0.7. EKG done here shows sinus rhythm with QTc of 443 and QRS of 90. ASSESSMENT AND PLAN: 1. Seizure, etiology most likely secondary to withdrawal. The patient has a PATIENT'S NAME: SID CRUZ [facility] AGE: 46 Y [address] ROOM: [id number] [place], [place] [address] LOCATION: [facility] ADMIT DATE: 11/25/2016 History & Physical DISCHARGE DATE: FAMILY PHYSICIAN: PHYSICIAN, UNKNOWN ATTENDING PHYSICIAN: Chevy LÓPEZ history of alcohol abuse, and alcohol level is currently undetected. The patient has received 20 mg of IV Valium and 4 mg of versed while en route due to seizure. We will put the patient on CIWA protocol. We will have standing order of phenobarbital 30 mg b.i.d. and Valium 5 mg IV t.i.d., and we will use Ativan as needed. I suspect the patient might need a higher dose of benzodiazepine during this admission, we will escalate if demand required is high. A CT head at an outside hospital is negative. 2. Alcohol withdrawal. See above. We will treat with the CIWA protocol and standing benzodiazepine and phenobarbital. 3. Severe hypokalemia of 2.1. The patient has already received 50 mEq of IV potassium at [facility] and en route and also received 40 mg of potassium orally from [place]. We will acquire CMS, if potassium still low, to give 40 mEq IV potassium and to give 40 mEq p.o. potassium every 3 hours until potassium is greater than or equal to 3.5. We will acquire renal function panel every 3 hours. 4. Hypomagnesemia, etiology most likely secondary to alcohol abuse. Currently magnesium 0.7, the patient has received 4 g of IV magnesium at [facility], we will give other 4 g of IV magnesium during this stay. To check magnesium and renal function panel every 3 hours and correct it as needed. 5. Alcohol abuse, currently on CIWA protocol. The patient to be seen by Social Work. 6. History of esophagitis. We will start the patient on Protonix. Greater than 30 minutes of critical care was spent. We will admit the patient to ICU. Code status, full code. Unable to contact and brother, phone was disconnected. MD RASTA WELLINGTON/diamond /[id number] D: [id number] T: [id number] HISTORY & PHYSICAL
--- NOTE | ~2016-11-25 | DS ---
PATIENT'S NAME: [facility] AGE: 46 Y [address] ROOM: [id number] [place], [place] [address] LOCATION: [facility] ADMIT DATE: 11/25/2016 Discharge Summary DISCHARGE DATE: 11/28/2016 FAMILY PHYSICIAN: PHYSICIAN, NO ATTENDING PHYSICIAN: Chevy Hogue FINAL DIAGNOSES: 1. Acute encephalopathy. 2. Chronic alcohol abuse with acute withdrawal. 3. Seizure, secondary to alcohol withdrawal. 4. Hypokalemia. 5. Hypomagnesemia. 6. Hyponatremia. HOSPITAL COURSE: Please see details of admission in H and P by Dr. Hogue. Briefly, the patient was admitted and placed on the [facility] protocol. The patient's electrolytes were replaced as per orders. She received Ativan p.r.n. for any further seizures. Lorazepam was utilized again per the [facility] order set. The patient did require phosphorus and potassium replacement. We tapered off her Ativan in accordance with her symptoms. The patient was covered with thiamine and folic acid. An EKG was repeated secondary to her prolonged QT interval on admission. The patient was able to be transferred out of the ICU on the . She continued to do well and her cognition cleared. On the , it was felt that the patient could safely be discharged home. We did offer inpatient treatment as per her chemical dependency evaluation recommendation; however, the patient refused and states that she would get in touch with her sponsor and continue to attend meetings. It is felt that the patient could safely be discharged home. DIAGNOSTICS: On admission, sodium was 131, potassium 2.6, chloride 86, bicarb 34, glucose 92, BUN 8, creatinine 0.5, sodium trended up to 141 on the day of discharge, potassium trended up to 3.7, magnesium was 1.5 on the day of discharge, CPK was 46, and CK-MB was 5.3 on the . Hemoglobin was 8.9 on the . DISCHARGE ORDERS: The patient is discharged home. She will follow up with SHANTELLE Goff on Thursday12/03/2016 at 11:30 p.m. who recommended that the patient have a BMP drawn that day. Activity is as tolerated. Diet is as tolerated. No alcohol. MEDICATIONS: Include: 1. multivitamin 1 daily. 2. Potassium gluconate 99 mg daily. 3. Magnesium oxide 400 mg daily. 4. Folic acid 1 mg daily. PATIENT'S NAME: [facility] AGE: 46 Y [address] ROOM: [id number] [place] [id number] LOCATION: [facility] ADMIT DATE: 11/25/2016 Discharge Summary DISCHARGE DATE: 11/28/2016 FAMILY PHYSICIAN: PHYSICIAN, NO ATTENDING PHYSICIAN: Chevy Hogue 5. Protonix 40 mg daily. 6. Phenobarbital 30 mg twice daily for 2 days. 7. Thiamine 100 mg daily. 8. Zoloft 50 mg daily. 9. Diazepam 2.5 mg twice daily for 1 day and then once a day and then discontinue. The patient was able to verbalize understanding of these discharge instructions and was discharged in stable condition. We do appreciate participating in this patient's care and thank you very much for the ability to serve her while hospitalized at [facility]. Time spent coordinating details of discharge was 37 minutes of which was spent coordinating with consulting physicians and care management, completion of medication reconciliation, education to the patient and family on the above- mentioned diagnoses. SHANTELLE DOLAN FOR ABHISHEK CARUSO MD KAYLEN/modl /[id number] d: 11/29/16 0239 t: 12/04/16 1547, DISCHARGE SUMMARY
[~2016-11-25 17:30] MED LIST changes: +B-1100 MG PO; +BUSPAR10 MG PO; +KEFLEX500 MG PO; +KLONOPIN0.5 MG PO; +MIRALAX17 GM PO; +PRENATAL 1+1)(P1 TAB PO; +PREVACID15 MG PO; +ZOLOFT50 MG PO
[2016-11-25 20:10] LABS: MAGNESIUM 2.3 mg/dL (1.8-2.6); PHOSPHORUS 1.7 mg/dL (2.5-4.9)
[2016-11-25 20:11] LABS: ALBUMIN 3.4 gm/dL (3.5-5.0); ALK PHOS 97 IU/L (33-138); ALT 58 IU/L (12-78); AST 85 IU/L (10-40); BLOOD UREA NITROGEN 8 mg/dL (6-24); CALCIUM 7.9 mg/dL (8.5-10.5); CO2 34 mMol/L (22-32); CREATININE 0.5 mg/dL (0.5-1.1); SODIUM 131 mMol/L (135-145); TOTAL PROTEIN 6.7 g/dL (6.0-8.4)
[2016-11-25 20:12] LABS: ANION GAP 13.6 (10.0-19.0); CHLORIDE 86 mMol/L (96-110); POTASSIUM 2.6 mMol/L (3.7-5.1); TOTAL BILIRUBIN 0.9 mg/dL (0.0-1.5)
[2016-11-25 23:32] LABS: ALBUMIN 3.3 gm/dL (3.5-5.0); ANION GAP 16.3 (10.0-19.0); BLOOD UREA NITROGEN 7 mg/dL (6-24); CALCIUM 7.5 mg/dL (8.5-10.5); CHLORIDE 90 mMol/L (96-110); CO2 29 mMol/L (22-32); CREATININE 0.4 mg/dL (0.5-1.1); MAGNESIUM 2.3 mg/dL (1.8-2.6); PHOSPHORUS 1.4 mg/dL (2.5-4.9); POTASSIUM 3.3 mMol/L (3.7-5.1); SODIUM 132 mMol/L (135-145)
[2016-11-26 03:00] LABS: BLOOD UREA NITROGEN 6 mg/dL (6-24); CHLORIDE 95 mMol/L (96-110); CO2 28 mMol/L (22-32); CREATININE 0.4 mg/dL (0.5-1.1); SODIUM 134 mMol/L (135-145)
[2016-11-26 03:08] LABS: ANION GAP 15.3 (10.0-19.0); CALCIUM 7.1 mg/dL (8.5-10.5); MAGNESIUM 2.3 mg/dL (1.8-2.6); PHOSPHORUS 1.3 mg/dL (2.5-4.9)
[2016-11-26 03:09] LABS: POTASSIUM 4.3 mMol/L (3.7-5.1)
[2016-11-26 09:01] LABS: CHLORIDE 97 mMol/L (96-110); CREATININE 0.4 mg/dL (0.5-1.1); POTASSIUM 4.3 mMol/L (3.7-5.1); SODIUM 133 mMol/L (135-145)
[2016-11-26 09:16] LABS: ALBUMIN 3.1 gm/dL (3.5-5.0); ANION GAP 17.3 (10.0-19.0); BLOOD UREA NITROGEN 5 mg/dL (6-24); CO2 23 mMol/L (22-32); MAGNESIUM 2.3 mg/dL (1.8-2.6); PHOSPHORUS 2.7 mg/dL (2.5-4.9)
[2016-11-26 09:22] LABS: CALCIUM 7.4 mg/dL (8.5-10.5)
[2016-11-26] MEDS ORDERED: MAG-OX-400(241400 MG PO (09:59)
[2016-11-26] MEDS ORDERED: POTASSIUM99 M1 PO (09:59)
[2016-11-26 14:53] LABS: ALBUMIN 3.2 gm/dL (3.5-5.0); ANION GAP 12.5 (10.0-19.0); BLOOD UREA NITROGEN 4 mg/dL (6-24); CHLORIDE 98 mMol/L (96-110); CO2 26 mMol/L (22-32); CREATININE 0.5 mg/dL (0.5-1.1); MAGNESIUM 1.9 mg/dL (1.8-2.6); POTASSIUM 3.5 mMol/L (3.7-5.1); SODIUM 133 mMol/L (135-145)
[2016-11-26 14:54] LABS: CALCIUM 7.2 mg/dL (8.5-10.5); PHOSPHORUS 1.2 mg/dL (2.5-4.9)
[2016-11-27 12:10] LABS: ALBUMIN 3.2 gm/dL (3.5-5.0); ANION GAP 11.7 (10.0-19.0); CHLORIDE 106 mMol/L (96-110); CO2 24 mMol/L (22-32); CREATININE 0.4 mg/dL (0.5-1.1); MAGNESIUM 1.8 mg/dL (1.8-2.6); POTASSIUM 3.7 mMol/L (3.7-5.1); SODIUM 138 mMol/L (135-145)
[2016-11-27 12:11] LABS: BLOOD UREA NITROGEN 8 mg/dL (6-24); CALCIUM 7.4 mg/dL (8.5-10.5); PHOSPHORUS 1.4 mg/dL (2.5-4.9)
[2016-11-28 06:53] LABS: ALBUMIN 2.8 gm/dL (3.5-5.0); ANION GAP 9.4 (10.0-19.0); BLOOD UREA NITROGEN 6 mg/dL (6-24); CHLORIDE 108 mMol/L (96-110); CO2 27 mMol/L (22-32); CREATININE 0.4 mg/dL (0.5-1.1); MAGNESIUM 1.5 mg/dL (1.8-2.6); POTASSIUM 3.4 mMol/L (3.7-5.1); SODIUM 141 mMol/L (135-145)
[2016-11-28 06:54] LABS: CALCIUM 7.4 mg/dL (8.5-10.5); PHOSPHORUS 1.8 mg/dL (2.5-4.9)
[2016-11-28] MEDS ORDERED: FOLIC ACID1 MG PO (14:28)
[2016-11-28] MEDS ORDERED: PROTONIX40 MG PO (14:38)
[2016-11-28] MEDS ORDERED: PHENOBARBITAL30 MG PO (14:39)
[2016-11-28] MEDS ORDERED: ZOLOFT50 MG PO (14:41)
[2016-11-28] MEDS ORDERED: B-1100 MG PO (14:41)
[2016-11-28] MEDS ORDERED: VALIUM5 MG PO (14:42)
== END 2016-11-28 15:05 | disposition disaster alternative care site (69) | DRG 896 ==
LOC: GICU 19:08 → G3N 11-28 10:00
PROVIDERS: Internal Medicine; ADMIT Internal Medicine
DX: F10.239 Alcohol dependence with withdrawal, unspecified (principal); G93.40 Encephalopathy, unspecified; G40.409 Other generalized epilepsy and epileptic syndromes, not intractable, without status epilepticus; E83.42 Hypomagnesemia; E87.1 Hypo-osmolality and hyponatremia; E87.6 Hypokalemia; Z87.19 Personal history of other diseases of the digestive system
CPT/HCPCS: J1650; J3360; J3411; J3475; J3480; J7030; J7050